=== PATIENT | female | born 1930 | race Caucasian/White ===

== ENCOUNTER 2016-12-14 13:06 | Observation (INO) | payer MEDICARE, OTHER ==
[2016-12-14 13:58] LABS: BASOPHILS % 0.4 (0.0-1.5); EOSINOPHILS % 4.7 % (0.0-6.8); MEAN CORPUSCULAR HEMOGLOBIN 30.8 pg (28.0-34.0); MEAN CORPUSCULAR VOLUME 92.5 fl (80.0-100.0); MONOCYTES % 9.6 % (0.0-11.0); NEUTROPHILS # 4.2 # k/uL (1.4-7.7)
[2016-12-14] MEDS ORDERED: SALINE FLUSH 10 ML DISP.SYRIN IVF ONE (14:06)
[2016-12-14] MEDS: ENOXAPARIN SODIUM 30 MG/0.3 ML DISP.SYRIN SQ SCH (14:38)
[2016-12-14 14:41] VITALS: BMI 30.4
[2016-12-14] MEDS ORDERED: ALPRAZOLAM 0.5 MG TABLET PO PRN (15:04)
[2016-12-14] MEDS ORDERED: NITROGLYCERIN 0.4 MG TAB.SUBL SL PRN (15:04)
[2016-12-14] MEDS ORDERED: 0.9 % SODIUM CHLORIDE 1,000 ML IV SCH (15:30)
[2016-12-14] MEDS: MULTIVITAMIN 1 EACH TABLET PO SCH (16:15)
[2016-12-14] MEDS: 0.9 % SODIUM CHLORIDE 1,000 ML IV SCH (16:39)
--- NOTE | 2016-12-14 18:14 | History and Physical Report ---
History of Present Illnes - History of Present Illness Reason for Visit: weakness History of Present Illness: 86-year-old white female who has not been doing well over the last 3 to 4 days. Patient is had decreased oral intake related to food and hydration. Patient is become more lethargic. Patient does have difficulties with ambulation of her related to her chronic osteoarthritis. Patient daughter who is her caregiver states that she is not been getting up out of bed at all. Patient been patient is worse than baseline. It was felt that the patient is probably dehydrated. Patient recently has been started on diuretic therapy for her chronic pedal edema. Patient was subsequently admitted to the hospital for further care and evaluation. - Past Medical History Cardiac: CAD, HTN Pulmonary: Other. denies: Asthma, COPD CLINICAL MEDICAL TRANSCRIPTIONIST: Dementia. denies: Carpal Tunnel Syndrome, CVA, Seizure, TIA Gastrointestinal: Constipation, GERD. denies: Diverticulosis, GI bleed Psych: Anxiety, Depression. denies: Addictions, Bipolar, Panic, Psychosis, Schizophrenia Musculoskeletal: Chronic low back pain, Osteoarthritis Grav: 3 - Past Surgical History Past Surgical History: , Total Hip Replacement, Total Knee Replacement , Other (foot surgery x 2, heart cahterization Mar 2014 with EF of 55%, NSTEMI, back stimulator implantation, Lumbar laminectomy x 2, ) - Past Family History Mother Family History: CVA, (89yo) Father Family History: (86yo, complication of hip surgery) - Past Social History Smoke: No Occupation: retired Alcohol: None Drugs: None Lives: With Family (Son and Daughter) Domestic Violence: Negative - Health Maintenance Health Maintenance: Influenza Vaccine (2012), Pneumococcal Vaccine ( Pneumococcal 23 - 1999) Influenza Vaccine: Current for this Influenza Season Pneumonia Vaccine: Yes Resuscitation Status: Resusciation Status Resuscitation Status Do Not Resuscitate - Unable to Obtain History Unable to Obtain: No Review of Systems - Review of Systems Constitutional: Weakness, Malaise. negative: Fever, Chills Eyes: negative: pain, vision change ENT: negative: Ear Pain, Ear Discharge, Nose Pain, Nose Discharge, Nose Congestion, Mouth Pain, Throat Pain Respiratory: Cough, Dry. negative: Shortness of Breath, Hemoptysis, Pleuritic Pain, Sputum Cardiovascular: negative: Chest Pain, Palpitations Gastrointestinal: Nausea, Constipation. negative: Vomiting, Abdominal Pain, Diarrhea, Melena, Hematochezia Genitourinary: Incontinence. negative: Dysuria, Frequency, Hematuria Musculoskeletal: Neck Pain, Shoulder Pain, Back Pain, Leg Pain Skin: Rash Neurological: Weakness, Confusion. negative: Numbness, Incoordination - Medications/Allergies Allergies/Adverse Reactions: Allergies Allergy/AdvReac Type Severity Reaction Status Date / Time amoxicillin trihydrate Allergy Verified 07/03/14 20:38 [From Augmentin] potassium clavulanate Allergy Verified 07/03/14 20:38 [From Augmentin] Current Inpatient Medications: Current Inpatient Medications Alprazolam (Xanax) 0.5 mg PO BID PRN PRN Reason: Anxiety Aspirin (Ecotrin) 81 mg PO DAILY [facility] Atorvastatin Calcium (Lipitor) 80 mg PO HS [facility] Calcium/Vitamin D (Caltrate With Vit D-3) each PO DAILY [facility] Clopidogrel Bisulfate (Plavix) 75 mg PO D [facility] Docusate Sodium (Colace) 100 mg PO BID [facility] Enoxaparin Sodium (Lovenox) 30 mg SQ QD [facility] Stop: 12/27/16 14:01 Last Admin: 12/14/16 14:38 Dose: 30 mg Ferrous Sulfate (Feosol) 325 mg PO 1100 [facility] Sodium Chloride (Normal Saline) 1,000 mls @ 125 mls/hr IV Q8H [facility] Last Admin: 12/14/16 16:39 Dose: 125 mls/hr Losartan Potassium (Cozaar) mg PO DAILY [facility] Multivitamins (Tab-A-Tiffanie) 1 each PO QD [facility] Last Admin: 12/14/16 16:15 Dose: 1 each Nitroglycerin (Nitroquick) 0.4 mg SL SEE.INSTRUCTIONS PRN PRN Reason: Chest Pain Oxycodone HCl (Oxycontin) 20 mg PO TID PRN PRN Reason: PAIN Pantoprazole Sodium (Protonix) 40 mg PO 0700 [facility] Polyethylene Glycol (Miralax) 17 gm PO DAILY [facility] Potassium Chloride (Klor-Con M20) 40 meq PO DAILY [facility] Sodium Chloride (Normal Saline Flush) 3 ml IV BID [facility] Exam - Exam Vital Signs: Vital Signs (72 hours) 12/14/16 12/14/16 12/14/16 13:37 13:43 14:00 Temperature 97.7 F 98.2 F Pulse Rate 69 Pulse Rate [ 83 93 H Left] Respiratory 18 16 Rate Blood Pressure 139/56 Blood Pressure 138/90 139/56 [Left Arm] O2 Sat by Pulse 93 93 Oximetry General: Oriented to Person, Cooperative. No: Alert (lethargic) HEENT: Atraumatic, PERRLA, Decreased Hearing Acuity. No: Mouth Mucous membr. moist/[place] (dry) Neck: Normal Range of Motion. No: Stridor, Rigidity, Lymphadenopathy Carotids: WNL Lungs: Clear to auscultation, Normal air movement, Speaks full Sentences. No: Wheezes, Rales, Rhonchi, Stridor Cardiovascular: Regular rate, Normal S1, Normal S2, No murmurs. No: Gallops, Rubs Abdomen: Normal bowel sounds, Soft, No tenderness, No hepatospenomegaly, No masses Integumentary: Normal, [place], Warm, Dry Extremities: No clubbing, No cyanosis, Other (edema 2-3plus) Neurological: Strength Equal Bilat, Normal tone, Sensation intact, Cranial nerves 3-12 NL, Reflexes 2+. No: Normal gait, Normal speech (confused) Psych/Mental Status: Mood NL. No: Mental status NL, Appropriate Affect, Intact Judgment - Laboratory Results Laboratory Results: Laboratory Results 12/14/16 12/14/16 13:50 13:50 WBC 6.70 RBC 3.81 L Hgb 11.7 L Hct 35.2 MCV 92.5 MCH 30.8 MCHC 33.3 RDW 12.7 Plt Count 205 Neut % (Auto) 63.5 Lymph % (Auto) 18.6 [place] % (Auto) 9.6 Eos % (Auto) 4.7 Baso % (Auto) 0.4 Neut # 4.2 Lymph # 1.2 [place] # 0.6 Eos # 0.3 Baso # 0.0 Reactive Lymphs % 3.3 Reactive Lymphs # 0.2 Sodium 134 L Potassium 3.3 L Chloride 91 L Carbon Dioxide 37 H BUN 79 H Creatinine 2.0 H Estimated Creat Clear 25 Est GFR ( Amer) 30 L Est GFR (Non-Af Amer) 25 L Glucose 121 H Calcium 9.8 Total Bilirubin 0.2 AST 31 ALT 17 Alkaline Phosphatase 120 H Total Protein 7.4 Albumin 4.1 Assessment/Plan - Assessment/Plan (1) Dehydration Status: Acute Assessment: Patient will be hydrated with IV normal saline. Will monitor patient's creatinine and BUN. Watch for signs of developing congestive heart failure. (2) Altered mental status Status: Acute Assessment: Probably related to dehydration. (3) Gastroesophageal reflux disease Status: Chronic Assessment: stable (4) Osteoarthritis Status: Chronic (5) Unsteady gait Status: Chronic Assessment: related to OA and dehydration (6) Weakness Status: Acute (7) Generalized osteoarthritis Status: Chronic (8) CKD (chronic kidney disease) Status: Chronic Qualifiers: Chronic kidney disease stage: stage 4 (severe) Qualified Code(s): N18.4 - Chronic kidney disease, stage 4 (severe) (9) Essential hypertension Status: Chronic Assessment: stable VTE Assessment - RISK FACTOR SCORE VTE RISK FACTOR SCORES: AGE OVER 60 YEARS, ANTICIPATED BED CONFINEMENT OR IMMOBILIZATION > 24 HOURS - RISK VTE MODERATE RISK: SCORE OF 2 (RISK PROXIMAL DVT 2-4%) PROPHYAXIS NEEDED
[2016-12-14] MEDS: ATORVASTATIN CALCIUM 80 MG TABLET PO SCH (20:08)
[2016-12-14] MEDS: DOCUSATE SODIUM 100 MG CAPSULE PO SCH (20:08)
[2016-12-14] MEDS: SALINE FLUSH 10 ML DISP.SYRIN IV SCH (20:55)
[2016-12-15] MEDS: 0.9 % SODIUM CHLORIDE 1,000 ML IV SCH ×4 (01:05→23:32)
--- NOTE | 2016-12-15 05:13 | Diagnostic Imaging Report ---
[facility] [address] [facility] [address] [address] Report Submission Date: December 14, 2016 3:58:21 PM CDT Patient Study Name: JASEN LENNON Date: December 14, 2016 3:18:03 PM CDT Modality Type: CR Gender: F Description: CHEST : 30 Institution: [facility] Physician: [facility] Single frontal view of the chest History: Shortness of breath Findings: Comparison: January 25, 2016 Patient is rotated Mild cardiomegaly. Aortic calcification Peribronchial thickening and mild bronchiectasis. No focal consolidation or pleural effusion Hiatal hernia Degenerative changes of the shoulders Impression: Cardiomegaly. Hiatal hernia Peribronchial thickening suggests bronchitis. Bronchiectasis. No focal consolidation or pleural effusion Electronically signed on December 14, 2016 3:58:21 PM CDT by: Agnes VALDEZ
[2016-12-15] MEDS: PANTOPRAZOLE SODIUM 40 MG TABLET PO SCH (06:19)
[2016-12-15] MEDS: SALINE FLUSH 10 ML DISP.SYRIN IV SCH ×2 (08:36→20:25)
[2016-12-15] MEDS: DOCUSATE SODIUM 100 MG CAPSULE PO SCH ×2 (08:36→20:13)
[2016-12-15] MEDS: POTASSIUM CHLORIDE 20 MEQ TABLET.ER PO SCH (08:37)
[2016-12-15] MEDS: CLOPIDOGREL BISULFATE 75 MG TABLET PO SCH (08:37)
[2016-12-15] MEDS: ASPIRIN EC 81 MG TABLET.DR PO SCH (08:40)
[2016-12-15] MEDS ORDERED: LOSARTAN POTASSIUM 50 MG TABLET PO SCH (09:00)
[2016-12-15] MEDS ORDERED: CALCIUM CARB 600MG/VIT D-3 400 1 EACH TABLET PO SCH ×2 (09:00→13:03)
[2016-12-15 09:31] LABS: eGFR (African) > 60; eGFR (Non-African) 38
[2016-12-15 09:57] LABS: APPEARANCE,URINE Clear (CLEAR); COLOR,URINE Yellow (YELLOW); OCCULT BLOOD,URINE Trace-intact (NEGATIVE); PH URINE 5.5 (5.0 - 8.0); UROBILINOGEN URINE 0.2 Eu (0.2-1.0)
[2016-12-15] MEDS: POLYETHYLENE GLYCOL 3350 17 GM POWD.PACK PO SCH (11:34)
[2016-12-15] MEDS: FERROUS SULFATE 325 MG TABLET PO SCH (11:58)
[2016-12-15] MEDS ORDERED: NITROGLYCERIN 0.4 MG TAB.SUBL SL PRN (13:02)
[2016-12-15] MEDS: LOSARTAN POTASSIUM 50 MG TABLET PO SCH (13:14)
[2016-12-15] MEDS: ENOXAPARIN SODIUM 30 MG/0.3 ML DISP.SYRIN SQ SCH (14:44)
--- NOTE | 2016-12-15 15:35 | Diagnostic Imaging Report ---
ANGY ROBINS [facility] [address] [facility] [address] [place], [place]. [address] Report Submission Date: December 15, 2016 3:24:54 PM CDT Patient Study Name: JASEN LENNON Date: December 15, 2016 12:48:11 PM CDT Modality Type: CR Gender: F Description: CHEST : 30 Institution: [facility] Physician: ANGY ROBINS 2 views of the chest History: CXR, DYSPNEA AND WEAKNESS, PT UNABLE TO STAND OR LEAN AGAINST CASSETTE FLAT DUE TO BACK PAIN, IMAGES TAKEN IN WHEELCHAIR Findings: Comparison: December 122016 Cardiomegaly with aortic calcification is noted. Patient is rotated Hiatal hernia. Emphysema. There is mild pulmonary vascular congestion. Minimal bibasilar atelectasis present. No pleural effusion or pneumothorax Degenerative changes of the shoulders are seen Impression: Cardiomegaly with pulmonary vascular congestion. Subsegmental bibasilar atelectasis. Hiatal hernia Electronically signed on December 15, 2016 3:24:54 PM CDT by: Agnes VALDEZ
[2016-12-15] MEDS: MULTIVITAMIN 1 EACH TABLET PO SCH (16:33)
[2016-12-15] MEDS: ATORVASTATIN CALCIUM 80 MG TABLET PO SCH (20:13)
[2016-12-16] MEDS: PANTOPRAZOLE SODIUM 40 MG TABLET PO SCH (06:07)
[2016-12-16] MEDS: 0.9 % SODIUM CHLORIDE 1,000 ML IV SCH (06:56)
[2016-12-16] MEDS: DOCUSATE SODIUM 100 MG CAPSULE PO SCH (08:33)
[2016-12-16] MEDS: ASPIRIN EC 81 MG TABLET.DR PO SCH (08:33)
[2016-12-16] MEDS: POTASSIUM CHLORIDE 20 MEQ TABLET.ER PO SCH (08:34)
[2016-12-16] MEDS: SALINE FLUSH 10 ML DISP.SYRIN IV SCH (08:34)
[2016-12-16] MEDS: CLOPIDOGREL BISULFATE 75 MG TABLET PO SCH (08:34)
[2016-12-16] MEDS: LOSARTAN POTASSIUM 50 MG TABLET PO SCH (08:35)
[2016-12-16] MEDS: POLYETHYLENE GLYCOL 3350 17 GM POWD.PACK PO SCH (08:35)
[2016-12-16 11:06] LABS: eGFR (African) > 60; eGFR (Non-African) > 60
[2016-12-16] MEDS: FERROUS SULFATE 325 MG TABLET PO SCH (11:29)
--- NOTE | 2016-12-16 14:43 | Inpatient Progress Note ---
Subjective - Required Recertification Statement I anticipate X number of days because-include discharge plan: 1 day - Review of Systems Events since last encounter: Patient does seem to be improved some today. Patient mental status is still not at her baseline. Patient is starting to take some oral hydration. Patient complains of her generalized osteoarthritis. Objective - Exam Vitals and I&O: Vital Signs Temp 98.2 F 12/16/16 10:00 Pulse 114 H 12/16/16 10:00 Resp 20 12/16/16 10:00 BP 163/73 12/16/16 10:00 Pulse Ox 92 12/16/16 10:00 Intake & Output 12/15/16 12/16/16 12/16/16 23:59 11:59 23:59 Intake Total 720 360 240 Output Total 1225 300 Balance -505 60 240 Weight 68.039 kg Intake: Oral 720 360 240 Output: Urine 1225 300 Other: Voiding Method Bedside Commode Bedside Commode # Voids 1 # Bowel Movements 1 3 General: Alert, Oriented to Person, Oriented to Place, Oriented to Time, Cooperative Lungs: Clear to auscultation, Normal air movement, Speaks full Sentences. No: Wheezes, Rales, Rhonchi Cardiovascular: Regular rate, Normal S1, Normal S2, No murmurs Abdomen: Normal bowel sounds, Soft, No tenderness Extremities: No clubbing, Other (edema stable) - Results Results: Laboratory Results WBC 6.70 K/ul (4.00-12.00) 12/14/16 13:50 RBC 3.81 M/ul (3.90-5.20) L 12/14/16 13:50 Hgb 11.7 g/dL (12.0-16.0) L 12/14/16 13:50 Hct 35.2 % (34.5-46.5) 12/14/16 13:50 MCV 92.5 fl (80.0-100.0) 12/14/16 13:50 MCH 30.8 pg (28.0-34.0) 12/14/16 13:50 MCHC 33.3 g/dL (30.0-36.0) 12/14/16 13:50 RDW 12.7 % (11.3-14.3) 12/14/16 13:50 Plt Count 205 K/mm3 (130-400) 12/14/16 13:50 Neut % (Auto) 63.5 % (39.0-79.0) 12/14/16 13:50 Lymph % (Auto) 18.6 % (16.0-50.0) 12/14/16 13:50 [place] % (Auto) 9.6 % (0.0-11.0) 12/14/16 13:50 Eos % (Auto) 4.7 % (0.0-6.8) 12/14/16 13:50 Baso % (Auto) 0.4 (0.0-1.5) 12/14/16 13:50 Neut # 4.2 # k/uL (1.4-7.7) 12/14/16 13:50 Lymph # 1.2 # k/uL (0.6-4.0) 12/14/16 13:50 [place] # 0.6 # k/uL (0.0-0.9) 12/14/16 13:50 Eos # 0.3 # k/uL (0.0-0.6) 12/14/16 13:50 Baso # 0.0 # k/uL (0.0-0.5) 12/14/16 13:50 Reactive Lymphs % 3.3 % (0.0-5.0) 12/14/16 13:50 Reactive Lymphs # 0.2 # k/uL (0.0-0.8) 12/14/16 13:50 Sodium 143 mmol/L (136-145) 12/16/16 10:35 Potassium 3.9 mmol/L (3.5-5.0) 12/16/16 10:35 Chloride 104 mmol/L (98-110) 12/16/16 10:35 Carbon Dioxide 36 mmol/L (20-32) H 12/16/16 10:35 BUN 36 mg/dL (10-26) H 12/16/16 10:35 Creatinine 1.1 mg/dL (0.4-1.5) 12/16/16 10:35 Estimated Creat Clear 46 12/16/16 10:35 Est GFR ( Amer) > 60 (60-) 12/16/16 10:35 Est GFR (Non-Af Amer) > 60 (60-) 12/16/16 10:35 Glucose 149 mg/dL (70-99) H 12/16/16 10:35 Calcium 10.1 mg/dL (8.5-10.5) 12/16/16 10:35 Total Bilirubin 0.2 mg/dL (0.2-1.2) 12/14/16 13:50 AST 31 U/L (0-41) 12/14/16 13:50 ALT 17 U/L (0-45) 12/14/16 13:50 Alkaline Phosphatase 120 U/L (46-116) H 12/14/16 13:50 Total Protein 7.4 g/dL (6.0-8.5) 12/14/16 13:50 Albumin 4.1 g/dL (3.0-5.5) 12/14/16 13:50 Urine Color Yellow (YELLOW) 12/15/16 09:55 Urine Appearance Clear (CLEAR) 12/15/16 09:55 Urine pH 5.5 (5.0 - 8.0) 12/15/16 09:55 Ur Specific [place] <=1.005 (1.010-1.030) L 12/15/16 09:55 Urine Protein Negative mg/dL (NEGATIVE) 12/15/16 09:55 Urine Ketones Negative mg/dL (NEGATIVE) 12/15/16 09:55 Urine Occult Blood Trace-intact (NEGATIVE) 12/15/16 09:55 Urine Nitrite Negative (NEGATIVE) 12/15/16 09:55 Urine Bilirubin Negative (NEGATIVE) 12/15/16 09:55 Urine Urobilinogen 0.2 Eu (0.2-1.0) 12/15/16 09:55 Ur Leukocyte Esterase Negative (NEGATIVE) 12/15/16 09:55 Urine Glucose Trace mg/dL (NEGATIVE) 12/15/16 09:55 Assessment/Plan - Assessment/Plan (1) Dehydration Status: Acute Assessment: This does seem to be improving. BUN has improved from 79 to 63. Creatinine has improved from 2.0 ti 1.4. Patient's mentation appeared to be improving. (2) Altered mental status Status: Acute Assessment: improved (3) Gastroesophageal reflux disease Status: Chronic Assessment: stable (4) Osteoarthritis Status: Chronic Assessment: stable (5) Unsteady gait Status: Chronic (6) Weakness Status: Acute Assessment: improved (7) Generalized osteoarthritis Status: Chronic (8) CKD (chronic kidney disease) Status: Chronic Qualifiers: Chronic kidney disease stage: stage 4 (severe) Qualified Code(s): N18.4 - Chronic kidney disease, stage 4 (severe) Assessment: improved (9) Essential hypertension Status: Chronic Assessment: stable (10) Hyperglycemia Status: Acute Assessment: Blood sugar 260. will monitor
--- NOTE | 2016-12-16 14:43 | Discharge Summary ---
Discharge Summary - Discharge Sumary History of Present Illness: 86-year-old white female who has not been doing well over the last 3 to 4 days. Patient is had decreased oral intake related to food and hydration. Patient is become more lethargic. Patient does have difficulties with ambulation of her related to her chronic osteoarthritis. Patient daughter who is her caregiver states that she is not been getting up out of bed at all. Patient been patient is worse than baseline. It was felt that the patient is probably dehydrated. Patient recently has been started on diuretic therapy for her chronic pedal edema. Patient was subsequently admitted to the hospital for further care and evaluation. Condition at Discharge: Guarded Home Medications: Ambulatory Orders Medication Instructions Recorded Aspirin EC [Ecotrin] 81 mg PO DAILY 03/26/14 Losartan Potassium [Cozaar] 0.5 tab PO DAILY 03/26/14 Multivitamin [Tab-A-Tiffanie] 1 each PO QD 03/26/14 Docusate Sodium [Colace] 100 mg PO BID 11/25/15 Furosemide [Lasix] 20 mg PO 714 #60 tablet 12/16/16 Consultations this Visit: None Procedures this Visit: None Allergies/Adverse Reactions: Allergies Allergy/AdvReac Type Severity Reaction Status Date / Time amoxicillin trihydrate Allergy Verified 07/03/14 20:38 [From Augmentin] potassium clavulanate Allergy Verified 07/03/14 20:38 [From Augmentin] Discharge Summary: Patient was admitted with a diagnosis of dehydration after she had not been eating or drinking well several days prior to admission. This was coupled with diuretic therapy for her pedal edema. Patient was started on IV hydration with normal saline. Patient is assumed BUN was 79 and creatinine was 2.0. At the time of discharge this has improved to BUN of 36 and a creatinine of 1.1. Patient ability to take in oral hydration improved during her hospitalization. Osteoarthritis remains stable. Patient did have some hypoglycemic episodes with a blood sugar up to 250. Patient did have some mild fasting hyperglycemia. Due to the patient age in her debilitating condition it was felt it would be best if we did not treat her elevated blood sugars at this time. I was afraid that she would become hypoglycemic if we did so. Patient was subsequently discharged in the garden but stable condition - Final Diagnosis (1) Dehydration Problems: improved (2) Altered mental status Problems: improved (3) Gastroesophageal reflux disease Problems: stable (4) Osteoarthritis Problems: stable (5) Weakness Problems: improved (7) CKD (chronic kidney disease) Problems: Acute on chronic, improved (8) Essential hypertension Problems: stable
[2016-12-16 16:43] VITALS: BP 163/73
== END 2016-12-16 16:30 | disposition home or self-care (01) ==
LOC: SOUTH 13:06
PROVIDERS: ADMIT Family Medicine; ATTEND Family Medicine
DX: E86.0 Dehydration (principal); R41.82 Altered mental status, unspecified; K21.9 Gastro-esophageal reflux disease without esophagitis; M19.90 Unspecified osteoarthritis, unspecified site; R53.1 Weakness; I12.9 Hypertensive chronic kidney disease with stage 1 through stage 4 chronic kidney disease, or unspecified chronic kidney disease; N18.9 Chronic kidney disease, unspecified
CPT/HCPCS: 36415; 71020; 80048; 80053; 81002; 85025; 96361; 96374; 96376; J1650; A9270; G0378; G0379; J7030; S1016

== ENCOUNTER 2017-02-01 15:42 | Outpatient (CLI) | payer MEDICARE, OTHER ==
--- NOTE | 2017-02-02 07:02 | Diagnostic Imaging Report ---
ANGY ROBINS~ [facility] [address] [facility] [address] ~ ~ ~ ~ Report Submission Date: Feb 01, 2017 5:03:30 PM CDT Patient ~ Study Name: JASEN LENNON ~ Date: Feb 01, 2017 3:53:04 PM CDT ~ Modality Type: CR Gender: F ~ Description: CHEST : 30 ~ Institution: [facility] Physician: ANGY ROBINS ~ ~ ~ ~ Examination: PA and lateral chest. History: Evaluate lung ball. Comparison exam: 15 Dec 2016 Findings: PA lateral chest demonstrate prominent cardiac silhouette. Vascular calcifications involving the aortic arch. Stable chronic appearing interstitial changes. No new consolidative process or blunting of the costophrenic margins. Osseous structures demonstrate advanced shoulder articular degenerative changes. Impression: Stable chronic interstitial changes. No acute appearing infiltrate or effusion. Stable cardiomegaly. ~ Electronically signed on Feb 01, 2017 5:03:30 PM CDT by: Alex VALDEZ
--- NOTE | 2017-02-02 07:03 | Diagnostic Imaging Report ---
ANGY ROBINS~ [facility] [address] [facility] [address] [address] ~ ~ ~ ~ Report Submission Date: Feb 01, 2017 5:08:30 PM CDT Patient ~ Study Name: JASEN LENNON ~ Date: Feb 01, 2017 4:06:49 PM CDT ~ Modality Type: CR Gender: F ~ Description: PELVIS : 30 ~ Institution: [facility] Physician: ANGY ROBINS ~ ~ ~ ~ Examination: Plain film pelvis History: Discomfort Comparison exams: None provided Findings: Single view of the pelvis demonstrates left hip fixation hardware. Right hip joint space narrowing. ~No fracture. Pelvic phleboliths. Superior and inferior pubic rami and iliac wings without fracture. Sacroiliac joint and lumbar spine degenerative changes. Stimulator projecting over the right iliac wing. Impression: Degenerative changes. No fracture. ~ Electronically signed on Feb 01, 2017 5:08:30 PM CDT by: Alex VALDEZ
== END 2017-02-01 15:43 ==
LOC: RAD 15:42
PROVIDERS: ATTEND Family Medicine
DX: R06.02 Shortness of breath (principal); S32.601A Unspecified fracture of right ischium, initial encounter for closed fracture
CPT/HCPCS: 71020; 72170

== ENCOUNTER 2017-08-17 11:59 | Outpatient (CLI) | payer MEDICARE, OTHER ==
--- NOTE | 2017-08-17 13:37 | Diagnostic Imaging Report ---
ANGY ROBINS [facility] [address] [facility] [address] 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 History: Evaluate lung ball. Comparison exam: 01 February 2017 Findings: PA lateral chest demonstrate a prominent cardiac and mediastinal silhouette. Bihilar vascular prominence. Perihilar interstitial haziness. Blunting of the posterior sulci hiatal hernia. Osseous structures demonstrates articular degenerative changes. Impression: Slightly increased interstitial haziness and effusion - infiltrate versus increased volume status/CHF. Electronically signed on Aug 17, 2017 12:46:40 PM SENIOR JAVA WEB DEVELOPER by: Alex VALDEZ
== END 2017-08-17 12:00 ==
LOC: RAD 11:59
PROVIDERS: ATTEND Family Medicine
DX: R06.02 Shortness of breath (principal)
CPT/HCPCS: 71020

== ENCOUNTER 2017-10-17 10:49 | Inpatient (IN) | payer MEDICARE, OTHER ==
--- NOTE | 2017-10-17 10:55 | ED Physician Documentation ---
Lower Extremity Injury - HISTORIAN Historian: patient - HPI Chief Complaint: Lower Extremity Injury (L knees) Additional Information: While trying to transfer from bed to commode last noc patient slumped down and injuried the left knee but was not having a lot of pain. This AM pain got worse and she started to have some swelling to the knee and came in for evaluation. Patient did not hear a pop. Has chronic problems with shortness of breath related to COPD and possible CHF. This seems to be getting some worse. No cough noted. Patient has been getting weaker, has a poor appetite. Where: home Severity: moderate Context: fall Associated Symptoms:: swelling (to knee), unable to bear weight. denies: numbness distally - ROS CONST: no problems CVS/RESP: shortness of breath GI/: denies: problems urinating, nausea, vomiting NEURO: denies: headache, head injury - PAST HX Past History: none (Past surgical history -Bilateral TKR, C section, Lumbar laminectomy x2, Hip replacement, back stimulator implantation.), other (anxiety disorder, GERDs, OA-generalized, HTN, R breast cancer) Immunizations: influenza, pneumovax, referred to PCP Allergies/Adverse Reactions: Allergies Allergy/AdvReac Type Severity Reaction Status Date / Time amoxicillin trihydrate Allergy Verified 10/17/17 11:05 [From Augmentin] potassium clavulanate Allergy Verified 10/17/17 11:05 [From Augmentin] Home Medications: Ambulatory Orders Medication Instructions Recorded Aspirin EC [Ecotrin] 81 mg PO DAILY 03/26/14 Losartan Potassium [Cozaar] 0.5 tab PO DAILY 03/26/14 Multivitamin [Tab-A-Tiffanie] 1 each PO QD 03/26/14 Docusate Sodium [Colace] 100 mg PO BID 11/25/15 - SOCIAL HX Smoking History: non-smoker Alcohol Use: none Drug Use: none - FAMILY HX Family History: no significant history - VITAL SIGNS Vital Signs: Vital Signs Temp Pulse Resp BP Pulse Ox 98.1 F 71 20 142/53 100 10/17/17 15:41 10/17/17 15:41 10/17/17 15:41 10/17/17 15:41 10/17/17 15:41 - REVIEWED ASSESSMENTS Nursing Assessment Reviewed: Yes Vitals Reviewed: Yes ED Results Lab/Radiology - Lab Results Lab Results: Lab Results 10/17/17 10/17/17 10/17/17 12:40 12:40 12:40 WBC 7.60 K/ul K/ul (4.00-12.00) RBC 3.01 M/ul L M/ul (3.90-5.20) Hgb 8.0 g/dL L g/dL (12.0-16.0) Hct 26.6 % L % (34.5-46.5) MCV 88.1 fl fl (80.0-100.0) MCH 26.7 pg L pg (28.0-34.0) MCHC 30.3 g/dL g/dL (30.0-36.0) RDW 13.5 % % (11.3-14.3) Plt Count 209 K/mm3 K/mm3 (130-400) Neut % (Auto) 78.2 % % (39.0-79.0) Lymph % (Auto) 11.0 % L % (16.0-50.0) [place] % (Auto) 8.2 % % (0.0-11.0) Eos % (Auto) 0.4 % % (0.0-6.8) Baso % (Auto) 0.2 (0.0-1.5) Neut # (Auto) 6.0 # k/uL # k/uL (1.4-7.7) Lymph # (Auto) 0.8 # k/uL # k/uL (0.6-4.0) [place] # (Auto) 0.6 # k/uL # k/uL (0.0-0.9) Eos # (Auto) 0.0 # k/uL # k/uL (0.0-0.6) Baso # (Auto) 0.0 # k/uL # k/uL (0.0-0.5) Reactive Lymphs % 2.1 % % (0.0-5.0) Reactive Lymphs # 0.2 # k/uL # k/uL (0.0-0.8) Sodium 139 mmol/L mmol/L (136-145) Potassium 2.4 mmol/L L* mmol/L (3.5-5.1) Chloride 82 mmol/L L mmol/L (98-107) Carbon Dioxide > 40 mmol/L H mmol/L (22-30) BUN 15 mg/dL mg/dL (7-17) Creatinine 1.00 mg/dL mg/dL (0.52-1.04) Estimated Creat Clear 45 Est GFR ( Amer) > 60 (60 - ) Est GFR (Non-Af Amer) > 60 (60 - ) Glucose 135 mg/dL H mg/dL (74-106) Calcium 9.2 mg/dL mg/dL (8.4-10.2) Total Bilirubin 0.7 mg/dL mg/dL (0.2-1.3) AST 35 U/L U/L (15-46) ALT 34 U/L U/L (13-69) Alkaline Phosphatase 77 U/L U/L (38-126) NT-Pro-B Natriuret Pep 6235.0 pg/mL H pg/mL (15.0-450.0) Total Protein 5.7 g/dL L g/dL (6.3-8.2) Albumin 3.0 g/dL L g/dL (3.5-5.0) - Orders Orders: ED Orders Category Date Time Status Place IV Lock 1T Care 10/17/17 11:10 Active CHEST 2VIEW [RAD] Routine Exams 10/17/[address] LEG W/O CONTRAST Stat Exams 10/17/17 Completed KNEE 3 VIEWS [RAD] Stat Exams 10/17/17 Completed BNP [NT-proBNP] Routine Lab 10/17/17 12:40 Completed CBC/PLATELET/DIFF Routine Lab 10/17/17 12:40 Completed CMP Routine Lab 10/17/17 12:40 Completed Ipratropium/Albuterol Sulfate [Duoneb] Med 10/17/17 11:01 Discontinued 3 ml NEB .STK-MED ONE Oxygen Daily Oxygen 10/17/17 11:15 Ordered EKG WITH COMPARISON Routine Ther 10/17/17 11:11 Completed Lower Extremities Injury Phy - Physical Exam General Appearance: alert, anxious Hips: bilateral hip: non-tender, normal inspection, normal range of motion, no evidence of injury Knees: right: normal inspection, no evidence of injury, left: bone tenderness, joint effusion, pain, bilateral: non-tender (mild tenderness to the R, moderate to the L), N/A: normal range of motion (decrease, R at baseline, Lpain with movement), deformity (none), ecchymosis (none) Ankle: bilateral: non-tender, normal inspection, normal range of motion, no evidence of injury Gait: limited by pain Neuro/Vascular/Tendon: no vascular compromise, motor nml, sensation nml Head/ENT: nml inspection. No: swelling, ecchymosis Neck/Back: nml inspection, tenderness (mild to posterior neck) Resp/CVS: chest non-tender, breath sounds nml. No: lungs clear (rales in the bases), reg. rate & rhythm (regular irregular) Abdomen: non-tender Discharge Clincal Impression: Hypokalemia Condition: Stable Disposition: ADMITTED INPATIENT Decision to Admit: [id number] Date of Decison to Admit: 10/17/17 Decision Time: 13:56
[2017-10-17] MEDS ORDERED: IPRATROPIUM/ALBUTEROL SULFATE 3 ML AMPUL.NEB NEB ONE (11:01)
[2017-10-17 12:43] LABS: BASOPHILS % 0.2 (0.0-1.5); EOSINOPHILS % 0.4 % (0.0-6.8); MEAN CORPUSCULAR HEMOGLOBIN 26.7 pg (28.0-34.0); MEAN CORPUSCULAR VOLUME 88.1 fl (80.0-100.0); MONOCYTES % 8.2 % (0.0-11.0)
[2017-10-17 12:59] LABS: eGFR (African) > 60; eGFR (Non-African) > 60
--- NOTE | 2017-10-17 12:59 | Diagnostic Imaging Report ---
ANGY ROBINS [facility] [address] [facility].[address] [address] Report Submission Date: Oct 17, 2017 12:39:42 PM CDT Patient Study Name: JASEN LENNON Date: Oct 17, 2017 11:55:40 AM CDT Modality Type: DX Gender: F Description: LOWER EXTREMITY : 30 Institution: [facility] Physician: ANGY ROBINS 3 views of the left knee Clinical history: Fall 4 days ago. Pain. Findings: Examination of the left knee in AP, lateral and sunrise views demonstrates left total knee replacement. There is irregularity of the medial femoral condyle that is not completely visualized because of superimposed prosthesis. Findings suggest minimally displaced fracture. Visualized tibia and fibula are intact. There is no significant joint effusion. Impression: 1. Irregularity of the medial femoral condyle. Rule out fracture. Electronically signed on Oct 17, 2017 12:39:42 PM CDT by: Kenrick VALDEZ
--- NOTE | 2017-10-17 13:00 | Diagnostic Imaging Report ---
ANGY ROBINS [facility] [address] [facility].[address] [address] Report Submission Date: Oct 17, 2017 12:38:05 PM CDT Patient Study Name: JASEN LENNON Date: Oct 17, 2017 11:42:55 AM CDT Modality Type: DX Gender: F Description: CHEST : 30 Institution: [facility] Physician: ANGY ROBINS AP and lateral chest Clinical history: Dyspnea. Findings: Examination of the chest in AP and lateral views demonstrates right pleural effusion and right basilar atelectasis. Cardiac silhouette is enlarged and the aorta is atherosclerotic severe degenerative changes are seen in the shoulders. Impression: Right pleural effusion with right basilar atelectasis. Cardiomegaly and aortic atherosclerosis. Electronically signed on Oct 17, 2017 12:38:05 PM CDT by: Kenrick VALDEZ
--- NOTE | 2017-10-17 14:54 | Diagnostic Imaging Report ---
[facility] [address] [facility] [address] [place] [address]. [id number] Report Submission Date: Oct 17, 2017 2:00:20 PM CDT Patient Study Name: JASEN LENNON Date: Oct 17, 2017 1:29:23 PM CDT Modality Type: CT\SR Gender: F Description: CT LEG W/O CONTRAST : 30 Institution: [facility] Physician ANGY ROBINS CT of the left knee CLINICAL HISTORY: Fall with injury. Pain. TECHNIQUE: CT left knee is performed in contiguous axial slices with sagittal and coronal reconstructions. FINDINGS: There is artifact from the patient's metallic knee prosthesis. Joint effusion is present. There is no obvious displaced fracture fragment. The appearance on plain films is felt to be postoperative in nature. Visualized tibia and fibula are intact. IMPRESSION: Total knee replacement. Joint effusion. No evident fracture. Electronically signed on Oct 17, 2017 2:00:20 PM CDT by: Kenrick VALDEZ
[2017-10-17 15:49] VITALS: BMI 25.9
[2017-10-17] MEDS ORDERED: NITROGLYCERIN 0.4 MG TAB.SUBL SL PRN (16:39)
[2017-10-17] MEDS ORDERED: POTASSIUM CHLORIDE 40 MEQ/NS 1,000 ML IV ONE (17:18)
[2017-10-17] MEDS: 0.9 % SODIUM CHLORIDE 1,000 ML with POTASSIUM CHLORIDE 40 MEQ IV SCH ×2 (17:24)
[2017-10-17] MEDS ORDERED: FUROSEMIDE 20 MG TABLET PO ONE (17:40)
--- NOTE | 2017-10-17 17:43 | History and Physical Report ---
History of Present Illnes - History of Present Illness Reason for Visit: not feeling well History of Present Illness: 87-year-old white female is transferring from a bed to a commode felt last night 's dream her left knee. Patient is not been feeling well for several weeks. Patient is had a decreased appetite although patient's daughter states she has been drinking fairly well. Patient stated that on the morning of admission she start having some increase pain and swelling in the knee is. Patient subsequently came to the ED for evaluation. In the ED patient was found to be markedly hypokalemic. Patient was having some difficulty maintaining her oxygenation greater than 88% on her usual 2 L of oxygen. Patient did have an elevated BNP greater than her baseline. Patient was felt to be possibly having some congestive heart failure associated with hypokalemia. Patient was subsequently admitted to the hospital for further care and evaluation.Chest x- ray did show a mild right-sided pleural effusion. - Past Medical History Cardiac: CAD, HTN Pulmonary: Other. denies: Asthma, COPD MEDICATION TECH: Dementia. denies: Carpal Tunnel Syndrome, CVA, Seizure, TIA Gastrointestinal: Constipation, GERD. denies: Diverticulosis, GI bleed Psych: Anxiety, Depression. denies: Addictions, Bipolar, Panic, Psychosis, Schizophrenia Musculoskeletal: Chronic low back pain, Osteoarthritis Grav: 3 - Past Surgical History Past Surgical History: , Total Hip Replacement, Total Knee Replacement , Other (foot surgery x 2, heart cahterization Mar 2014 with EF of 55%, NSTEMI, back stimulator implantation, Lumbar laminectomy x 2, ) - Past Social History Smoke: No Occupation: retired Alcohol: None Drugs: None Lives: With Family (Son and Daughter) Domestic Violence: Negative - Health Maintenance Health Maintenance: Influenza Vaccine (2012), Pneumococcal Vaccine ( Pneumococcal 23 - 1999) Pneumonia Vaccine: Yes Resuscitation Status: Resusciation Status Resuscitation Status No Intubation/Mech Vent - Unable to Obtain History Unable to Obtain: No Review of Systems - Review of Systems Constitutional: Weakness. negative: Fever, Chills Eyes: negative: pain, vision change ENT: negative: Ear Pain, Ear Discharge, Nose Pain, Nose Discharge, Nose Congestion, Mouth Pain, Mouth Swelling, Throat Pain, Throat Swelling Respiratory: Cough, Dry, Shortness of Breath, SOB with Excertion. negative: Hemoptysis, Pleuritic Pain, Wheezing Cardiovascular: Orthopnea, Edema. negative: Chest Pain, Palpitations, Paroxysmal Noc. Dyspnea, Light Headedness Gastrointestinal: negative: Nausea, Vomiting, Abdominal Pain, Diarrhea, Constipation, Melena, Hematochezia Genitourinary: Incontinence. negative: Dysuria, Frequency Musculoskeletal: Back Pain, Leg Pain Skin: negative: Rash, Lesions Neurological: Weakness. negative: Numbness, Incoordination, Change in Speech, Confusion, Seizures - Medications/Allergies Allergies/Adverse Reactions: Allergies Allergy/AdvReac Type Severity Reaction Status Date / Time amoxicillin trihydrate Allergy Verified 10/17/17 11:05 [From Augmentin] potassium clavulanate Allergy Verified 10/17/17 11:05 [From Augmentin] Current Inpatient Medications: Current Inpatient Medications Alprazolam (Xanax) 0.5 mg PO BID PRN PRN Reason: Anxiety Aspirin (Ecotrin) 81 mg PO DAILY [facility] Docusate Sodium (Colace) 100 mg PO BID [facility] Enoxaparin Sodium (Lovenox) 30 mg SQ QD [facility] Stop: 10/30/17 17:01 Furosemide (Lasix) 20 mg PO BID [facility] Potassium Chloride 40 meq/ (Sodium Chloride) 1,020 mls @ 100 mls/hr IV Q10H [facility] Last Admin: 10/17/17 17:24 Dose: 100 mls/hr Losartan Potassium (Cozaar) mg PO DAILY [facility] Metoprolol Succinate (Toprol Xl) 50 mg PO DAILY [facility] Multivitamins (Tab-A-Tiffanie) 1 each PO QD [facility] Nitroglycerin (Nitroquick) 0.4 mg SL SEE.INSTRUCTIONS PRN PRN Reason: Chest Pain Oxycodone HCl (Oxycontin) 10 mg PO TID PRN PRN Reason: PAIN Paroxetine HCl (Paxil) 40 mg PO DAILY [facility] Polyethylene Glycol (Miralax) 17 gm PO DAILY [facility] Potassium Chloride (Klor-Con M20) 40 meq PO BID [facility] Ropinirole HCl (Requip) 0.5 mg PO TID [facility] Sodium Chloride (Normal Saline Flush) 3 ml IV BID [facility] Spironolactone (Aldactone) 25 mg PO DAILY [facility] Trazodone HCl (Desyrel) 50 mg PO [facility] Exam - Exam Vital Signs: Vital Signs (72 hours) 10/17/17 15:41 Temperature 98.1 F Pulse Rate [ 71 Right Pulse ox] Respiratory 20 Rate Blood Pressure 142/53 [Right Arm] O2 Sat by Pulse 100 Oximetry General: Alert, Oriented to Person, Oriented to Place, Oriented to Time, Cooperative, Mild distress HEENT: Atraumatic, PERRLA, Dentition Normal. No: Mouth Mucous membr. moist/ [place] (dry) Neck: Normal Range of Motion. No: Stridor, Rigidity, Lymphadenopathy Carotids: WNL Thyroid: WNL Lungs: Normal air movement, Speaks full Sentences, Rales (few rales in bases) Cardiovascular: Normal S1, Normal S2, No murmurs, Regularly Irregular Abdomen: Normal bowel sounds, Soft, No tenderness, No hepatospenomegaly, No masses. No: Distended Integumentary: Warm, Dry, Pale Extremities: No clubbing, No cyanosis. No: Normal pulses (deminished in LE) Neurological: Normal speech, Strength Equal Bilat, Normal tone, Sensation intact , Cranial nerves 3-12 NL, Reflexes 2+. No: Normal gait Psych/Mental Status: Mental status NL, Mood NL, Appropriate Affect, Intact Judgment Assessment/Plan - Assessment/Plan (1) Hypokalemia Status: Acute Current Visit: Yes Assessment: Etiology unknown, will start IV and po supplement and recheck. Patient will be placed on heart monitor. (2) CHF (congestive heart failure) Status: Acute Current Visit: Yes Qualifiers: Heart failure type: systolic Assessment: Patient's BND is elevated above baseline, pleural effusion and cadiomegaly on CXR, continues to have some pedal edema. Will start IV lasix, monitor weight and renal functions. Patient is having increase oxygen requirement to maintain SAO2. (3) LBBB (left bundle branch block) Status: Chronic Current Visit: Yes (4) Anemia Status: Acute Current Visit: Yes Qualifiers: Anemia type: unspecified type Qualified Code(s): D64.9 - Anemia, unspecified Assessment: will monitor and get stool specimen for blood (5) Contusion of left knee Status: Acute Current Visit: Yes Assessment: X-ray and CT scan negative for fracture. Will start PT and OT. VTE Assessment - RISK FACTOR SCORE VTE RISK FACTOR SCORES: AGE OVER 60 YEARS, ANTICIPATED BED CONFINEMENT OR IMMOBILIZATION > 24 HOURS - RISK VTE MODERATE RISK: SCORE OF 2 (RISK PROXIMAL DVT 2-4%) PROPHYAXIS NEEDED
[2017-10-17] MEDS: ENOXAPARIN SODIUM 30 MG/0.3 ML DISP.SYRIN SQ SCH (17:50)
[2017-10-17] MEDS: rOPINIRole HCL 1 MG TABLET PO SCH ×2 (17:50→18:49)
[2017-10-17] MEDS: MULTIVITAMIN 1 EACH TABLET PO SCH (17:51)
[2017-10-17] MEDS ORDERED: oxyCODONE HCL 10 MG TAB.ER.12H PO ONE (19:34)
[2017-10-17] MEDS: FUROSEMIDE 40 MG/4 ML VIAL IVP SCH (19:41)
[2017-10-17] MEDS: DOCUSATE SODIUM 100 MG CAPSULE PO SCH (20:19)
[2017-10-17] MEDS: POTASSIUM CHLORIDE 20 MEQ TABLET.ER PO SCH (20:19)
[2017-10-17] MEDS: SALINE FLUSH 10 ML DISP.SYRIN IV SCH (20:19)
[2017-10-17] MEDS: ALPRAZOLAM 0.5 MG TABLET PO PRN (20:24)
[2017-10-17] MEDS: traZODone HCL 50 MG TABLET PO SCH (21:00)
[2017-10-17] MEDS ORDERED: FUROSEMIDE 40 MG TABLET PO SCH (21:00)
[2017-10-18] MEDS ORDERED: POTASSIUM CHLORIDE 40 MEQ/NS 1,000 ML IV ONE (03:35)
[2017-10-18] MEDS: 0.9 % SODIUM CHLORIDE 1,000 ML with POTASSIUM CHLORIDE 40 MEQ IV SCH ×2 (03:38)
[2017-10-18] MEDS: FUROSEMIDE 40 MG/4 ML VIAL IVP SCH ×2 (06:07→14:06)
[2017-10-18 07:04] LABS: APPEARANCE,URINE CLEAR (CLEAR); COLOR,URINE AMBER (YELLOW)
[2017-10-18 07:05] LABS: OCCULT BLOOD,URINE NEGATIVE (NEGATIVE); PH URINE 5.5 (5.0 - 8.0); UROBILINOGEN URINE 0.2 Eu (0.2-1.0)
[2017-10-18 07:11] LABS: BASOPHILS % 0.3 (0.0-1.5); EOSINOPHILS % 0.5 % (0.0-6.8); MEAN CORPUSCULAR HEMOGLOBIN 26.6 pg (28.0-34.0); MEAN CORPUSCULAR VOLUME 89.2 fl (80.0-100.0); MONOCYTES % 8.6 % (0.0-11.0); NEUTROPHILS # 6.5 # k/uL (1.4-7.7)
[2017-10-18 07:23] LABS: eGFR (African) > 60; eGFR (Non-African) > 60
[2017-10-18] MEDS: DOCUSATE SODIUM 100 MG CAPSULE PO SCH ×2 (08:51→19:55)
[2017-10-18] MEDS: POTASSIUM CHLORIDE 20 MEQ TABLET.ER PO SCH (08:51)
[2017-10-18] MEDS: ASPIRIN EC 81 MG TABLET.DR PO SCH (08:51)
[2017-10-18] MEDS: SPIRONOLACTONE 25 MG TABLET PO SCH (08:51)
[2017-10-18] MEDS: PARoxetine HCL 10 MG TABLET PO SCH (08:52)
[2017-10-18] MEDS: rOPINIRole HCL 1 MG TABLET PO SCH ×3 (08:53→17:49)
[2017-10-18] MEDS: METOPROLOL SUCCINATE 50 MG TAB.ER.24H PO SCH (08:55)
[2017-10-18] MEDS: SALINE FLUSH 10 ML DISP.SYRIN IV SCH ×2 (08:56→19:59)
[2017-10-18] MEDS: POLYETHYLENE GLYCOL 3350 17 GM POWD.PACK PO SCH (08:56)
[2017-10-18] MEDS ORDERED: LOSARTAN POTASSIUM 50 MG TABLET PO SCH (09:00)
[2017-10-18] MEDS ORDERED: NITROGLYCERIN 0.4 MG TAB.SUBL SL PRN (09:06)
[2017-10-18] MEDS ORDERED: oxyCODONE HCL 10 MG TAB.ER.12H PO ONE (11:35)
[2017-10-18] MEDS ORDERED: oxyCODONE HCL 5 MG TABLET PO PRN (12:51)
[2017-10-18] MEDS ORDERED: oxyCODONE HCL 5 MG TABLET PO SCH (13:00)
[2017-10-18] MEDS: oxyCODONE HCL 5 MG TABLET PO PRN (13:20)
--- NOTE | 2017-10-18 14:38 | Inpatient Progress Note ---
Subjective - Required Recertification Statement I anticipate X number of days because-include discharge plan: 1 day - Review of Systems Events since last encounter: Patient is doing some better today. Pain in the knee is a little better. Still feels weak. SOB is about the same. Patient denies any chest pain. General: Denies: Chills Pulmonary: Dyspnea. Denies: Cough, Pleuritic Chest Pain Cardiovascular: Denies: Chest Pain, Palpitations, Orthopnea Gastrointestinal: Denies: Nausea, Vomiting, Abdominal Pain, Diarrhea, Constipation, Melena, Hematochezia Genitourinary: Incontinence. Denies: Dysuria Musculoskeletal: Neck Pain, Back Pain, Leg Pain Neurological: Weakness Objective - Exam Vitals and I&O: Vital Signs Temp 98.4 F 10/18/17 10:00 Pulse 89 10/18/17 10:00 Resp 16 10/18/17 10:00 BP 100/72 10/18/17 10:00 Pulse Ox 98 10/18/17 10:00 Intake & Output 10/17/17 10/18/17 10/18/17 23:59 11:59 23:59 Intake Total 50 1656 240 Balance 50 1656 240 Weight 62.142 kg Intake: IV 1536 Right Hand 1536 Oral 50 120 240 Other: Voiding Method Diaper Bedpan # Voids 2 General: Alert, Oriented to Person, Oriented to Place, Oriented to Time, Cooperative Neck: Supple, No JVD Lungs: Speaks full Sentences, Rales (in bases R>L) Cardiovascular: Regular rate, Normal S1, Normal S2, No murmurs Abdomen: Normal bowel sounds, Soft, No tenderness, No hepatospenomegaly, No masses Skin: Normal, [place], Warm, Dry Neurological: Normal speech, Strength Equal Bilat Psych/Mental Status: Mental status NL, Mood NL - Results Results: Laboratory Results WBC 8.20 K/ul (4.00-12.00) 10/18/17 06:00 RBC 2.96 M/ul (3.90-5.20) L 10/18/17 06:00 Hgb 7.9 g/dL (12.0-16.0) L 10/18/17 06:00 Hct 26.3 % (34.5-46.5) L 10/18/17 06:00 MCV 89.2 fl (80.0-100.0) 10/18/17 06:00 MCH 26.6 pg (28.0-34.0) L 10/18/17 06:00 MCHC 29.9 g/dL (30.0-36.0) L 10/18/17 06:00 RDW 13.5 % (11.3-14.3) 10/18/17 06:00 Plt Count 192 K/mm3 (130-400) 10/18/17 06:00 Neut % (Auto) 79.9 % (39.0-79.0) H 10/18/17 06:00 Lymph % (Auto) 8.2 % (16.0-50.0) L 10/18/17 06:00 [place] % (Auto) 8.6 % (0.0-11.0) 10/18/17 06:00 Eos % (Auto) 0.5 % (0.0-6.8) 10/18/17 06:00 Baso % (Auto) 0.3 (0.0-1.5) 10/18/17 06:00 Neut # (Auto) 6.5 # k/uL (1.4-7.7) 10/18/17 06:00 Lymph # (Auto) 0.7 # k/uL (0.6-4.0) 10/18/17 06:00 [place] # (Auto) 0.7 # k/uL (0.0-0.9) 10/18/17 06:00 Eos # (Auto) 0.0 # k/uL (0.0-0.6) 10/18/17 06:00 Baso # (Auto) 0.0 # k/uL (0.0-0.5) 10/18/17 06:00 Reactive Lymphs % 2.5 % (0.0-5.0) 10/18/17 06:00 Reactive Lymphs # 0.2 # k/uL (0.0-0.8) 10/18/17 06:00 Sodium 142 mmol/L (136-145) 10/18/17 06:00 Potassium 3.6 mmol/L (3.5-5.1) 10/18/17 06:00 Chloride 88 mmol/L (98-107) L 10/18/17 06:00 Carbon Dioxide > 40 mmol/L (22-30) H 10/18/17 06:00 BUN 20 mg/dL (7-17) H 10/18/17 06:00 Creatinine 1.10 mg/dL (0.52-1.04) H 10/18/17 06:00 Estimated Creat Clear 41 10/18/17 06:00 Est GFR ( Amer) > 60 (60-) 10/18/17 06:00 Est GFR (Non-Af Amer) > 60 (60-) 10/18/17 06:00 Glucose 127 mg/dL (74-106) H 10/18/17 06:00 Calcium 9.1 mg/dL (8.4-10.2) 10/18/17 06:00 Total Bilirubin 0.7 mg/dL (0.2-1.3) 10/18/17 06:00 AST 34 U/L (15-46) 10/18/17 06:00 ALT 36 U/L (13-69) 10/18/17 06:00 Alkaline Phosphatase 65 U/L (38-126) 10/18/17 06:00 NT-Pro-B Natriuret Pep 6235.0 pg/mL (15.0-450.0) H 10/17/17 12:40 Total Protein 5.3 g/dL (6.3-8.2) L 10/18/17 06:00 Albumin 2.7 g/dL (3.5-5.0) L 10/18/17 06:00 Urine Color [place] (YELLOW) 10/17/17 15: Urine Appearance Clear (CLEAR) 10/17/17 15: Urine pH 5.5 (5.0 - 8.0) 10/17/17 15:27 Ur Specific [place] >=1.030 (1.010-1.030) H 10/17/17 15: Urine Protein 1+ mg/dL (NEGATIVE) H 10/17/17 15: Urine Ketones Negative mg/dL (NEGATIVE) 10/17/17 15: Urine Occult Blood Negative (NEGATIVE) 10/17/17 15: Urine Nitrite Negative (NEGATIVE) 10/17/17 15: Urine Bilirubin 1+ (NEGATIVE) H 10/17/17 15:27 Urine Urobilinogen 0.2 Eu (0.2-1.0) 03/13/18 15:27 Ur Leukocyte Esterase Negative (NEGATIVE) 10/17/17 15:27 Urine Glucose Negative mg/dL (NEGATIVE) 10/17/17 15:27 Assessment/Plan - Assessment/Plan (1) CHF (congestive heart failure) Status: Acute Current Visit: Yes Qualifiers: Heart failure type: systolic Assessment: will recheck chesst x-ray, continue with IV lasix. Will try to start to wean down oxygen. (2) Hypokalemia Status: Acute Current Visit: Yes Assessment: improved to 3.6, will d/c IV fluids and K, decrease oral dose of K and recheck in the AM (3) LBBB (left bundle branch block) Status: Chronic Current Visit: Yes Assessment: stable (4) Anemia Status: Acute Current Visit: Yes Qualifiers: Anemia type: unspecified type Qualified Code(s): D64.9 - Anemia, unspecified Assessment: stable, stool for occult blood ordered (5) Contusion of left knee Status: Acute Current Visit: Yes Assessment: stable (6) Elevated CO2 level Status: Acute Current Visit: Yes Plan: will get arterial blood gas
[2017-10-18] MEDS: ENOXAPARIN SODIUM 30 MG/0.3 ML DISP.SYRIN SQ SCH (17:50)
[2017-10-18] MEDS: MULTIVITAMIN 1 EACH TABLET PO SCH (17:50)
--- NOTE | 2017-10-18 18:16 | Diagnostic Imaging Report ---
[place] [address] [facility] [address] [address] Report Submission Date: Oct 18, 2017 10:10:10 AM CDT Patient Study Name: JASEN LENNON Date: Oct 18, 2017 9:31:17 AM CDT Modality Type: DX Gender: F Description: CHEST : 30 Institution: [facility] Physician: [place]/MED SURG Chest, 2 view History: CONTINUED COUGH Findings: The heart is enlarged. Mild vascular congestion is present. Bilateral pleural effusions are present with bibasilar atelectasis. Severe degenerative are present within the bilateral shoulders. Impression: 1. Cardiomegaly is mild vascular congestion. 2. Bilateral pleural effusions bibasilar atelectasis Electronically signed on Oct 18, 2017 10:10:10 AM CDT by: Omer VALDEZ
[2017-10-18] MEDS: traZODone HCL 50 MG TABLET PO SCH (19:55)
[2017-10-19] MEDS: FUROSEMIDE 40 MG/4 ML VIAL IVP SCH ×2 (05:33→14:09)
[2017-10-19 08:04] LABS: BASOPHILS % 0.3 (0.0-1.5); EOSINOPHILS % 0.7 % (0.0-6.8); MEAN CORPUSCULAR HEMOGLOBIN 26.6 pg (28.0-34.0); MEAN CORPUSCULAR VOLUME 89.1 fl (80.0-100.0); MONOCYTES % 7.5 % (0.0-11.0); NEUTROPHILS # 6.5 # k/uL (1.4-7.7)
[2017-10-19] MEDS: ASPIRIN EC 81 MG TABLET.DR PO SCH (08:05)
[2017-10-19] MEDS: PARoxetine HCL 10 MG TABLET PO SCH (08:05)
[2017-10-19] MEDS: METOPROLOL SUCCINATE 50 MG TAB.ER.24H PO SCH (08:05)
[2017-10-19] MEDS: POLYETHYLENE GLYCOL 3350 17 GM POWD.PACK PO SCH (08:06)
[2017-10-19] MEDS: SPIRONOLACTONE 25 MG TABLET PO SCH (08:06)
[2017-10-19] MEDS: rOPINIRole HCL 1 MG TABLET PO SCH ×3 (08:06→18:55)
[2017-10-19] MEDS: SALINE FLUSH 10 ML DISP.SYRIN IV SCH ×2 (08:11→22:11)
[2017-10-19 08:39] LABS: eGFR (African) > 60; eGFR (Non-African) 41
[2017-10-19] MEDS ORDERED: ACETAMINOPHEN 500 MG TABLET PO ONE (08:47)
[2017-10-19] MEDS ORDERED: diphenhydrAMINE HCL 25 MG TABLET PO ONE (08:47)
[2017-10-19] MEDS ORDERED: POTASSIUM CHLORIDE 20 MEQ TABLET.ER PO SCH (09:00)
[2017-10-19] MEDS ORDERED: LOSARTAN POTASSIUM 50 MG TABLET PO SCH (09:00)
[2017-10-19] MEDS: oxyCODONE HCL 5 MG TABLET PO PRN (11:15)
--- NOTE | 2017-10-19 12:03 | Inpatient Progress Note ---
Subjective - Required Recertification Statement I anticipate X number of days because-include discharge plan: 1 day - Review of Systems Events since last encounter: Patient seems a little more lethargic today. Voices no complaints. Hgb has dropped to 7.3. Due to th fact that she has CHF will transfuse her two units. CO2 has improved to 38. Bun and creatinine are elevated slightly higher. Pain seem to be controlled some better. Objective - Exam Vitals and I&O: Vital Signs Temp 97.5 F L 10/19/17 05:46 Pulse 85 10/19/17 05:46 Resp 18 10/19/17 09:21 BP 134/60 10/19/17 05:46 Pulse Ox 96 10/19/17 05:46 Intake & Output 10/18/17 10/19/17 10/19/17 23:59 11:59 23:59 Intake Total 615 340 Balance 615 340 Intake: IV 15 Right Hand 15 Oral 600 340 Other: Voiding Method Bedpan # Voids 1 1 General: Oriented to Person, Mild distress. No: Oriented to Place, Oriented to Time Lungs: Speaks full Sentences, Rales (in bases) Cardiovascular: Regular rate (LBBB) Abdomen: Normal bowel sounds, Soft, No tenderness Skin: Normal, [place], Warm, Dry Neurological: Normal speech Psych/Mental Status: Appropriate Affect. No: Mental status NL (more confused today), Intact Judgment - Results Results: Laboratory Results WBC 8.20 K/ul (4.00-12.00) 10/19/17 07:24 RBC 2.75 M/ul (3.90-5.20) L 10/19/17 07:24 Hgb 7.3 g/dL (12.0-16.0) L 10/19/17 07:24 Hct 24.5 % (34.5-46.5) L 10/19/17 07:24 MCV 89.1 fl (80.0-100.0) 10/19/17 07:24 MCH 26.6 pg (28.0-34.0) L 10/19/17 07:24 MCHC 29.9 g/dL (30.0-36.0) L 10/19/17 07:24 RDW 13.6 % (11.3-14.3) 10/19/17 07:24 Plt Count 193 K/mm3 (130-400) 10/19/17 07:24 Neut % (Auto) 79.2 % (39.0-79.0) H 10/19/17 07:24 Lymph % (Auto) 8.8 % (16.0-50.0) L 10/19/17 07:24 [place] % (Auto) 7.5 % (0.0-11.0) 10/19/17 07:24 Eos % (Auto) 0.7 % (0.0-6.8) 10/19/17 07:24 Baso % (Auto) 0.3 (0.0-1.5) 10/19/17 07:24 Neut # (Auto) 6.5 # k/uL (1.4-7.7) 10/19/17 07:24 Lymph # (Auto) 0.7 # k/uL (0.6-4.0) 10/19/17 07:24 [place] # (Auto) 0.6 # k/uL (0.0-0.9) 10/19/17 07:24 Eos # (Auto) 0.1 # k/uL (0.0-0.6) 10/19/17 07:24 Baso # (Auto) 0.0 # k/uL (0.0-0.5) 10/19/17 07:24 Reactive Lymphs % 3.5 % (0.0-5.0) 10/19/17 07:24 Reactive Lymphs # 0.3 # k/uL (0.0-0.8) 10/19/17 07:24 Sodium 139 mmol/L (136-145) 10/19/17 07:55 Potassium 4.6 mmol/L (3.5-5.1) 10/19/17 07:55 Chloride 91 mmol/L (98-107) L 10/19/17 07:55 Carbon Dioxide 38 mmol/L (22-30) H 10/19/17 07:55 BUN 30 mg/dL (7-17) H 10/19/17 07:55 Creatinine 1.30 mg/dL (0.52-1.04) H 10/19/17 07:55 Estimated Creat Clear 35 10/19/17 07:55 Est GFR ( Amer) > 60 (60-) 10/19/17 07:55 Est GFR (Non-Af Amer) 41 (60-) L 10/19/17 07:55 Glucose 109 mg/dL (74-106) H 10/19/17 07:55 Calcium 9.3 mg/dL (8.4-10.2) 10/19/17 07:55 Total Bilirubin 0.7 mg/dL (0.2-1.3) 10/19/17 07:55 AST 30 U/L (15-46) 10/19/17 07:55 ALT 38 U/L (13-69) 10/19/17 07:55 Alkaline Phosphatase 72 U/L (38-126) 10/19/17 07:55 NT-Pro-B Natriuret Pep 6235.0 pg/mL (15.0-450.0) H 10/17/17 12:40 Total Protein 5.3 g/dL (6.3-8.2) L 10/19/17 07:55 Albumin 2.7 g/dL (3.5-5.0) L 10/19/17 07:55 Urine Color Paula (YELLOW) 10/17/17 15:27 Urine Appearance Clear (CLEAR) 10/17/17 15:27 Urine pH 5.5 (5.0 - 8.0) 10/17/17 15:27 Ur Specific [place] >=1.030 (1.010-1.030) H 10/17/17 15:27 Urine Protein 1+ mg/dL (NEGATIVE) H 10/17/17 15:27 Urine Ketones Negative mg/dL (NEGATIVE) 10/17/17 15:27 Urine Occult Blood Negative (NEGATIVE) 10/17/17 15:27 Urine Nitrite Negative (NEGATIVE) 10/17/17 15:27 Urine Bilirubin 1+ (NEGATIVE) H 10/17/17 15:27 Urine Urobilinogen 0.2 Eu (0.2-1.0) 10/17/17 15:27 Ur Leukocyte Esterase Negative (NEGATIVE) 10/17/17 15:27 Urine Glucose Negative mg/dL (NEGATIVE) 10/17/17 15:27 Assessment/Plan - Assessment/Plan (1) CHF (congestive heart failure) Status: Acute Current Visit: Yes Qualifiers: Heart failure type: systolic Assessment: stable, hopefully transfusion will help, will watch for fluid overload. (2) Hypokalemia Status: Acute Current Visit: Yes Assessment: improved 4.6 today (3) LBBB (left bundle branch block) Status: Chronic Current Visit: Yes Assessment: stable (4) Anemia Status: Acute Current Visit: Yes Qualifiers: Anemia type: unspecified type Qualified Code(s): D64.9 - Anemia, unspecified (5) Contusion of left knee Status: Acute Current Visit: Yes Assessment: stable, still having some pain (6) Elevated CO2 level Status: Acute Current Visit: Yes Assessment: Believed to be related to supplemental oxygen being high, is improved today.
[2017-10-19] MEDS ORDERED: 0.9 % SODIUM CHLORIDE 250 ML IV ONE (14:26)
[2017-10-19] MEDS: MULTIVITAMIN 1 EACH TABLET PO SCH (18:21)
[2017-10-19] MEDS: ENOXAPARIN SODIUM 30 MG/0.3 ML DISP.SYRIN SQ SCH (18:22)
[2017-10-19] MEDS: ACETAMINOPHEN 500 MG TABLET PO ONE (18:24)
[2017-10-19] MEDS: DOCUSATE SODIUM 100 MG CAPSULE PO SCH (22:10)
[2017-10-19] MEDS: traZODone HCL 50 MG TABLET PO SCH (22:11)
[2017-10-20] MEDS ORDERED: 0.9 % SODIUM CHLORIDE 0 ML IV ONE (01:08)
[2017-10-20] MEDS: ACETAMINOPHEN 500 MG TABLET PO ONE (01:16)
[2017-10-20 04:51] LABS: IRON SERUM 17 ug/dL (37-145); SERUM IRON 17 ug/dL (37-145)
[2017-10-20 06:23] LABS: BASOPHILS % 0.3 (0.0-1.5); MEAN CORPUSCULAR HEMOGLOBIN 27.4 pg (28.0-34.0); MEAN CORPUSCULAR VOLUME 88.6 fl (80.0-100.0); MONOCYTES % 10.8 % (0.0-11.0); NEUTROPHILS # 5.3 # k/uL (1.4-7.7)
[2017-10-20] MEDS: FUROSEMIDE 40 MG/4 ML VIAL IVP SCH (07:15)
[2017-10-20] MEDS: SPIRONOLACTONE 25 MG TABLET PO SCH (09:20)
[2017-10-20] MEDS: DOCUSATE SODIUM 100 MG CAPSULE PO SCH ×2 (09:21→21:20)
[2017-10-20] MEDS: LOSARTAN POTASSIUM 50 MG TABLET PO SCH (09:22)
[2017-10-20] MEDS ORDERED: MAGNESIUM HYDROXIDE 400 MG/5 ML 30ML UDC PO PRN (09:22)
[2017-10-20] MEDS: PARoxetine HCL 10 MG TABLET PO SCH (09:23)
[2017-10-20] MEDS: POLYETHYLENE GLYCOL 3350 17 GM POWD.PACK PO SCH (09:23)
[2017-10-20] MEDS: SALINE FLUSH 10 ML DISP.SYRIN IV SCH ×2 (09:23→21:14)
[2017-10-20] MEDS: rOPINIRole HCL 1 MG TABLET PO SCH ×3 (09:24→17:44)
[2017-10-20] MEDS: ASPIRIN EC 81 MG TABLET.DR PO SCH (09:25)
[2017-10-20] MEDS: METOPROLOL SUCCINATE 50 MG TAB.ER.24H PO SCH (09:25)
--- NOTE | 2017-10-20 09:25 | Inpatient Progress Note ---
Subjective - Required Recertification Statement I anticipate X number of days because-include discharge plan: 1 day - Review of Systems Events since last encounter: Patient seems brighter today. Answering question appropriately. Complains of some lower bck pain. Feels constipated. General: Denies: Chills Cardiovascular: Denies: Chest Pain, Palpitations Gastrointestinal: Constipation. Denies: Nausea, Vomiting, Abdominal Pain, Hematochezia Genitourinary: Denies: Dysuria Objective - Exam Vitals and I&O: Vital Signs Temp 97.8 F 10/20/17 06:00 Pulse 74 10/20/17 06:00 Resp 18 10/20/17 06:00 BP 113/55 10/20/17 06:00 Pulse Ox 100 10/20/17 06:00 Intake & Output 10/19/17 10/19/17 10/20/17 11:59 23:59 11:59 Intake Total 340 960 150 Balance 340 960 150 Weight 65.317 kg Intake: Oral 340 960 150 Other: Voiding Method Bedpan Bedpan Diaper # Voids 1 1 General: Alert, Oriented to Person, Oriented to Place, Oriented to Time, Cooperative Neck: Supple Lungs: Normal air movement, Speaks full Sentences, Rales (R>L base) Cardiovascular: Regular rate, Normal S1, Normal S2, No murmurs Abdomen: Normal bowel sounds, Soft, No tenderness, No hepatospenomegaly, No masses Extremities: No clubbing, No edema Skin: Normal, [place], Warm, Dry Neurological: Normal speech, Strength Equal Bilat Psych/Mental Status: Mental status NL, Mood NL - Results Results: Laboratory Results WBC 7.40 K/ul (4.00-12.00) 10/20/17 05:11 RBC 3.23 M/ul (3.90-5.20) L 10/20/17 05:11 Hgb 8.9 g/dL (12.0-16.0) L 10/20/17 05:11 Hct 28.6 % (34.5-46.5) L 10/20/17 05:11 MCV 88.6 fl (80.0-100.0) 10/20/17 05:11 MCH 27.4 pg (28.0-34.0) L 10/20/17 05:11 MCHC 31.0 g/dL (30.0-36.0) 10/20/17 05:11 RDW 13.9 % (11.3-14.3) 10/20/17 05:11 Plt Count 196 K/mm3 (130-400) 10/20/17 05:11 Neut % (Auto) 72.0 % (39.0-79.0) 10/20/17 05:11 Lymph % (Auto) 12.8 % (16.0-50.0) L 10/20/17 05:11 [place] % (Auto) 10.8 % (0.0-11.0) 10/20/17 05:11 Eos % (Auto) 1.0 % (0.0-6.8) 10/20/17 05:11 Baso % (Auto) 0.3 (0.0-1.5) 10/20/17 05:11 Neut # (Auto) 5.3 # k/uL (1.4-7.7) 10/20/17 05:11 Lymph # (Auto) 1.0 # k/uL (0.6-4.0) 10/20/17 05:11 [place] # (Auto) 0.8 # k/uL (0.0-0.9) 10/20/17 05:11 Eos # (Auto) 0.1 # k/uL (0.0-0.6) 10/20/17 05:11 Baso # (Auto) 0.0 # k/uL (0.0-0.5) 10/20/17 05:11 Reactive Lymphs % 3.0 % (0.0-5.0) 10/20/17 05:11 Reactive Lymphs # 0.2 # k/uL (0.0-0.8) 10/20/17 05:11 Sodium 136 mmol/L (136-145) 10/20/17 05:11 Potassium 5.5 mmol/L (3.5-5.1) H 10/20/17 05:11 Chloride 90 mmol/L (98-107) L 10/20/17 05:11 Carbon Dioxide 38 mmol/L (22-30) H 10/20/17 05:11 BUN 39 mg/dL (7-17) H 10/20/17 05:11 Creatinine 1.60 mg/dL (0.52-1.04) H 10/20/17 05:11 Estimated Creat Clear 30 10/20/17 05:11 Est GFR ( Amer) 39 (60-) L 10/20/17 05:11 Est GFR (Non-Af Amer) 32 (60-) L 10/20/17 05:11 Glucose 91 mg/dL (74-106) 10/20/17 05:11 Calcium 9.5 mg/dL (8.4-10.2) 10/20/17 05:11 Iron 17 ug/dL (37-145) L 10/19/17 Unknown Iron (send out) 17 ug/dL (37-145) L 10/19/17 Unknown TIBC 257 ug/dL (250-425) 10/19/17 Unknown % Saturation 7 % (20-50) L 10/19/17 Unknown Total Bilirubin 0.7 mg/dL (0.2-1.3) 10/20/17 05:11 AST 29 U/L (15-46) 10/20/17 05:11 ALT 34 U/L (13-69) 10/20/17 05:11 Alkaline Phosphatase 71 U/L (38-126) 10/20/17 05:11 Troponin I 0.50 ng/mL (0.03-0.06) H 10/20/17 05:11 NT-Pro-B Natriuret Pep 9051.4 pg/mL (15.0-450.0) H 10/20/17 05:11 Total Protein 5.5 g/dL (6.3-8.2) L 10/20/17 05:11 Albumin 2.8 g/dL (3.5-5.0) L 10/20/17 05:11 Vitamin B12 648 pg/mL (211-946) 10/19/17 Unknown Folate >20.0 ng/mL (>4.50) 10/19/17 Unknown Urine Color [place] (YELLOW) 10/17/17 15:27 Urine Appearance Clear (CLEAR) 10/17/17 15:27 Urine pH 5.5 (5.0 - 8.0) 10/17/17 15:27 Ur Specific [place] >=1.030 (1.010-1.030) H 10/17/17 15:27 Urine Protein 1+ mg/dL (NEGATIVE) H 10/17/17 15:27 Urine Ketones Negative mg/dL (NEGATIVE) 10/17/17 15:27 Urine Occult Blood Negative (NEGATIVE) 10/17/17 15:27 Urine Nitrite Negative (NEGATIVE) 10/17/17 15:27 Urine Bilirubin 1+ (NEGATIVE) H 10/17/17 15:27 Urine Urobilinogen 0.2 Eu (0.2-1.0) 10/17/17 15:27 Ur Leukocyte Esterase Negative (NEGATIVE) 10/17/17 15:27 Urine Glucose Negative mg/dL (NEGATIVE) 10/17/17 15:27 Assessment/Plan - Assessment/Plan (1) CHF (congestive heart failure) Status: Acute Current Visit: Yes Qualifiers: Heart failure type: systolic Assessment: BNP higher today. Will check troponin. BUN and creatinine are higher also, may be getting a little dry (2) Hypokalemia Status: Acute Current Visit: Yes Assessment: Potassium is elevated today, will stop supplemental K (3) LBBB (left bundle branch block) Status: Chronic Current Visit: Yes Assessment: stable (4) Anemia Status: Acute Current Visit: Yes Qualifiers: Anemia type: unspecified type Qualified Code(s): D64.9 - Anemia, unspecified Assessment: post transfusion of 1 unit Hgb 8.9 (5) Contusion of left knee Status: Acute Current Visit: Yes Assessment: Patient voices no complaints (6) Elevated CO2 level Status: Acute Current Visit: Yes Assessment: CO2 38 this AM
[2017-10-20] MEDS: oxyCODONE HCL 5 MG TABLET PO PRN (09:38)
[2017-10-20] MEDS: ENOXAPARIN SODIUM 30 MG/0.3 ML DISP.SYRIN SQ SCH (17:44)
[2017-10-20] MEDS: MULTIVITAMIN 1 EACH TABLET PO SCH (17:45)
[2017-10-20] MEDS: traZODone HCL 50 MG TABLET PO SCH (21:16)
[2017-10-21] MEDS: FUROSEMIDE 40 MG/4 ML VIAL IVP SCH (06:08)
[2017-10-21 08:38] LABS: BASOPHILS % 0.2 (0.0-1.5); EOSINOPHILS % 1.1 % (0.0-6.8); MEAN CORPUSCULAR HEMOGLOBIN 27.4 pg (28.0-34.0); MEAN CORPUSCULAR VOLUME 89.3 fl (80.0-100.0); MONOCYTES % 8.7 % (0.0-11.0); NEUTROPHILS # 5.6 # k/uL (1.4-7.7)
[2017-10-21] MEDS: LOSARTAN POTASSIUM 50 MG TABLET PO SCH (09:29)
[2017-10-21] MEDS: SALINE FLUSH 10 ML DISP.SYRIN IV SCH ×2 (09:30→21:11)
[2017-10-21] MEDS: SPIRONOLACTONE 25 MG TABLET PO SCH (09:30)
[2017-10-21] MEDS: DOCUSATE SODIUM 100 MG CAPSULE PO SCH ×2 (09:30→21:08)
[2017-10-21] MEDS: ASPIRIN EC 81 MG TABLET.DR PO SCH (09:30)
[2017-10-21] MEDS: POLYETHYLENE GLYCOL 3350 17 GM POWD.PACK PO SCH (09:30)
[2017-10-21] MEDS: PARoxetine HCL 10 MG TABLET PO SCH (09:31)
[2017-10-21] MEDS: rOPINIRole HCL 1 MG TABLET PO SCH ×3 (09:31→17:30)
[2017-10-21] MEDS: METOPROLOL SUCCINATE 50 MG TAB.ER.24H PO SCH (09:32)
--- NOTE | 2017-10-21 10:22 | Diagnostic Imaging Report ---
[facility]/MED SURG [facility] [address] [facility] [address] [address] Report Submission Date: Oct 21, 2017 10:20:32 AM CDT Patient Study Name: JASEN LENNON Date: Oct 21, 2017 10:05:12 AM CDT Modality Type: DX Gender: F Description: CHEST : 30 Institution: [facility] Physician: [facility]/MED SURG Examination: Portable chest History: COUGH, PT NOT ABLE TO STAY STILL FOR EXAM (Hx) Comparison exam: 18 October 2017 Findings: Single view of the chest demonstrates prominent cardiac silhouette. Vascular calcifications involving the aortic arch. Continued bibasilar parenchymal haziness with blunting of the costophrenic margins. Advanced articular degenerative changes. Impression: Continued large bilateral infiltrates/effusions. Cardiomegaly. Electronically signed on Oct 21, 2017 10:20:32 AM CDT by: Alex VALDEZ
[2017-10-21] MEDS: oxyCODONE HCL 5 MG TABLET PO PRN ×2 (10:39→21:45)
[2017-10-21] MEDS: ALPRAZOLAM 0.5 MG TABLET PO PRN (16:58)
[2017-10-21] MEDS: MULTIVITAMIN 1 EACH TABLET PO SCH (17:31)
[2017-10-21] MEDS: ENOXAPARIN SODIUM 30 MG/0.3 ML DISP.SYRIN SQ SCH (17:31)
[2017-10-21] MEDS: traZODone HCL 50 MG TABLET PO SCH (21:08)
[2017-10-22] MEDS: ALPRAZOLAM 0.5 MG TABLET PO PRN ×2 (04:41→14:49)
[2017-10-22] MEDS: FUROSEMIDE 40 MG/4 ML VIAL IVP SCH (06:04)
[2017-10-22] MEDS: SALINE FLUSH 10 ML DISP.SYRIN IV SCH ×2 (09:19→21:00)
[2017-10-22] MEDS: DOCUSATE SODIUM 100 MG CAPSULE PO SCH ×2 (09:19→20:44)
[2017-10-22] MEDS: ASPIRIN EC 81 MG TABLET.DR PO SCH (09:19)
[2017-10-22] MEDS: POLYETHYLENE GLYCOL 3350 17 GM POWD.PACK PO SCH (09:19)
[2017-10-22] MEDS: METOPROLOL SUCCINATE 50 MG TAB.ER.24H PO SCH (09:20)
[2017-10-22] MEDS: PARoxetine HCL 10 MG TABLET PO SCH (09:20)
[2017-10-22] MEDS: rOPINIRole HCL 1 MG TABLET PO SCH ×3 (09:20→18:42)
[2017-10-22] MEDS: SPIRONOLACTONE 25 MG TABLET PO SCH (09:21)
[2017-10-22] MEDS: LOSARTAN POTASSIUM 50 MG TABLET PO SCH (09:27)
--- NOTE | 2017-10-22 12:42 | Inpatient Progress Note ---
Subjective - Required Recertification Statement I anticipate X number of days because-include discharge plan: 1 day - Review of Systems Events since last encounter: Patient seems to be improving some at this time. Breathing appears to be stable. Patient voices no complaints at this time. Appetite is fair. Pulmonary: Dyspnea (mild) Cardiovascular: Denies: Chest Pain, Palpitations Gastrointestinal: Denies: Nausea, Vomiting, Abdominal Pain Objective - Exam Vitals and I&O: Vital Signs Temp 97.5 F L 10/22/17 09:30 Pulse 88 10/22/17 06:00 Resp 18 10/22/17 09:30 BP 160/77 10/22/17 09:30 Pulse Ox 99 10/22/17 09:30 Intake & Output 10/21/17 10/22/17 10/22/17 23:59 11:59 23:59 Intake Total 225 170 Balance 225 170 Intake: Oral 225 170 Other: Voiding Method Incontinent Diaper # Voids 2 General: Alert, Oriented to Person, Oriented to Place, Oriented to Time, Cooperative Neck: Supple, No JVD Lungs: Speaks full Sentences, Rhonchi (few scattered bilateral) Cardiovascular: Regular rate, Normal S1, Normal S2, No murmurs Extremities: No clubbing, Other (1 plus edema) Skin: Normal, [place], Warm, Dry - Results Results: Laboratory Results WBC 7.40 K/ul (4.00-12.00) 10/21/17 08:30 RBC 3.67 M/ul (3.90-5.20) L 10/21/17 08:30 Hgb 10.0 g/dL (12.0-16.0) L 10/21/17 08:30 Hct 32.8 % (34.5-46.5) L 10/21/17 08:30 MCV 89.3 fl (80.0-100.0) 10/21/17 08:30 MCH 27.4 pg (28.0-34.0) L 10/21/17 08:30 MCHC 30.6 g/dL (30.0-36.0) 10/21/17 08:30 RDW 13.9 % (11.3-14.3) 10/21/17 08:30 Plt Count 194 K/mm3 (130-400) 10/21/17 08:30 Neut % (Auto) 75.2 % (39.0-79.0) 10/21/17 08:30 Lymph % (Auto) 10.8 % (16.0-50.0) L 10/21/17 08:30 [place] % (Auto) 8.7 % (0.0-11.0) 10/21/17 08:30 Eos % (Auto) 1.1 % (0.0-6.8) 10/21/17 08:30 Baso % (Auto) 0.2 (0.0-1.5) 10/21/17 08:30 Neut # (Auto) 5.6 # k/uL (1.4-7.7) 10/21/17 08:30 Lymph # (Auto) 0.8 # k/uL (0.6-4.0) 10/21/17 08:30 [place] # (Auto) 0.6 # k/uL (0.0-0.9) 10/21/17 08:30 Eos # (Auto) 0.1 # k/uL (0.0-0.6) 10/21/17 08:30 Baso # (Auto) 0.0 # k/uL (0.0-0.5) 10/21/17 08:30 Reactive Lymphs % 4.0 % (0.0-5.0) 10/21/17 08:30 Reactive Lymphs # 0.3 # k/uL (0.0-0.8) 10/21/17 08:30 Sodium 135 mmol/L (136-145) L 10/21/17 08:30 Potassium 5.2 mmol/L (3.5-5.1) H 10/21/17 08:30 Chloride 89 mmol/L (98-107) L 10/21/17 08:30 Carbon Dioxide 36 mmol/L (22-30) H 10/21/17 08:30 BUN 42 mg/dL (7-17) H 10/21/17 08:30 Creatinine 1.50 mg/dL (0.52-1.04) H 10/21/17 08:30 Estimated Creat Clear 27 10/21/17 08:30 Est GFR ( Amer) 42 (60-) L 10/21/17 08:30 Est GFR (Non-Af Amer) 35 (60-) L 10/21/17 08:30 Glucose 100 mg/dL (74-106) 10/21/17 08:30 Calcium 9.7 mg/dL (8.4-10.2) 10/21/17 08:30 Iron 17 ug/dL (37-145) L 10/19/17 Unknown Iron (send out) 17 ug/dL (37-145) L 10/19/17 Unknown TIBC 257 ug/dL (250-425) 10/19/17 Unknown % Saturation 7 % (20-50) L 10/19/17 Unknown Total Bilirubin 0.7 mg/dL (0.2-1.3) 10/20/17 05:11 AST 29 U/L (15-46) 10/20/17 05:11 ALT 34 U/L (13-69) 10/20/17 05:11 Alkaline Phosphatase 71 U/L (38-126) 10/20/17 05:11 Troponin I 0.50 ng/mL (0.03-0.06) H 10/20/17 05:11 NT-Pro-B Natriuret Pep 9051.4 pg/mL (15.0-450.0) H 10/20/17 05:11 Total Protein 5.5 g/dL (6.3-8.2) L 10/20/17 05:11 Albumin 2.8 g/dL (3.5-5.0) L 10/20/17 05:11 Vitamin B12 648 pg/mL (211-946) 10/19/17 Unknown Folate >20.0 ng/mL (>4.50) 10/19/17 Unknown Urine Color [place] (YELLOW) 10/17/17 15:27 Urine Appearance Clear (CLEAR) 10/17/17 15:27 Urine pH 5.5 (5.0 - 8.0) 10/17/17 15:27 Ur Specific [place] >=1.030 (1.010-1.030) H 10/17/17 15:27 Urine Protein 1+ mg/dL (NEGATIVE) H 10/17/17 15:27 Urine Ketones Negative mg/dL (NEGATIVE) 10/17/17 15:27 Urine Occult Blood Negative (NEGATIVE) 10/17/17 15: Urine Nitrite Negative (NEGATIVE) 10/17/17 15:27 Urine Bilirubin 1+ (NEGATIVE) H 10/17/17 15:27 Urine Urobilinogen 0.2 Eu (0.2-1.0) 10/17/17 15:27 Ur Leukocyte Esterase Negative (NEGATIVE) 10/17/17 15:27 Urine Glucose Negative mg/dL (NEGATIVE) 10/17/17 15:27 Assessment/Plan - Assessment/Plan (1) CHF (congestive heart failure) Status: Acute Current Visit: Yes Qualifiers: Heart failure type: systolic Assessment: stable to improving (2) Hypokalemia Status: Acute Current Visit: Yes Assessment: resolved, Patient now has some hyperkalemia, supplemental K discontinued. Will decrease Losartan. (3) Anemia Status: Acute Current Visit: Yes Qualifiers: Anemia type: unspecified type Qualified Code(s): D64.9 - Anemia, unspecified Assessment: anemia 10 today (4) Contusion of left knee Status: Acute Current Visit: Yes Assessment: improved (5) Elevated CO2 level Status: Acute Current Visit: Yes Assessment: improved
[2017-10-22] MEDS ORDERED: LEVOFLOXACIN 500MG/D5W 100ML 100 ML IV ONE (13:02)
[2017-10-22] MEDS: LEVOFLOXACIN 500MG/D5W 100ML 500 MG in PREMIX BAG 1 BAG IV SCH (13:18)
--- NOTE | 2017-10-22 13:27 | Diagnostic Imaging Report ---
[facility]/MED SURG~ [facility] [address] [facility] [address] [address] ~ ~ ~ ~ Report Submission Date: Oct 22, 2017 1:01:36 PM CDT Patient ~ Study Name: JASEN LENNON ~ Date: Oct 22, 2017 12:49:36 PM CDT ~ Modality Type: DX Gender: F ~ Description: CHEST : 30 ~ Institution: [facility] Physician: [facility]/MED SURG ~ ~ ~ Portable chest CLINICAL HISTORY: ~ Increased dyspnea. FINDINGS: ~ Examination of the chest in single portable AP view with comparison to examination from the previous day demonstrates persistent large bilateral effusions and bibasilar infiltrates or atelectasis. ~Cardiovascular and mediastinal silhouettes are stable. ~The aorta is atherosclerotic. ~There is no significant change in the appearance of the chest. IMPRESSION: ~ No significant change. ~ Electronically signed on Oct 22, 2017 1:01:36 PM CDT by: Kenrick VALDEZ
[2017-10-22] MEDS ORDERED: FUROSEMIDE 40 MG/4 ML VIAL IVP ONE (17:30)
[2017-10-22] MEDS: ENOXAPARIN SODIUM 30 MG/0.3 ML DISP.SYRIN SQ SCH (18:41)
[2017-10-22] MEDS: MULTIVITAMIN 1 EACH TABLET PO SCH (18:42)
[2017-10-22] MEDS ORDERED: ACETAMINOPHEN 650 MG SUPP.RECT RC PRN (18:44)
[2017-10-22] MEDS: MORPHINE SULFATE 4 MG/ML PREFILLED SYR IVP PRN ×2 (19:18→22:26)
[2017-10-23] MEDS ORDERED: LEVOFLOXACIN 500MG/D5W 100ML 100 ML IV ONE (05:10)
[2017-10-23] MEDS: MORPHINE SULFATE 4 MG/ML PREFILLED SYR IVP PRN ×2 (07:59→12:46)
[2017-10-23] MEDS: FUROSEMIDE 40 MG/4 ML VIAL IVP SCH (08:08)
[2017-10-23] MEDS: LEVOFLOXACIN 500MG/D5W 100ML 500 MG in PREMIX BAG 1 BAG IV SCH (10:37)
[2017-10-23 11:05] LABS: ABG PH 7.4 (7.35-7.45)
[2017-10-23] MEDS: ASPIRIN EC 81 MG TABLET.DR PO SCH (12:15)
[2017-10-23] MEDS: DOCUSATE SODIUM 100 MG CAPSULE PO SCH ×2 (12:15→22:47)
[2017-10-23] MEDS: LOSARTAN POTASSIUM 50 MG TABLET PO SCH (12:15)
[2017-10-23] MEDS: rOPINIRole HCL 1 MG TABLET PO SCH ×3 (12:16→17:18)
[2017-10-23] MEDS: METOPROLOL SUCCINATE 50 MG TAB.ER.24H PO SCH (12:16)
[2017-10-23] MEDS: POLYETHYLENE GLYCOL 3350 17 GM POWD.PACK PO SCH (12:16)
[2017-10-23] MEDS: PARoxetine HCL 10 MG TABLET PO SCH (12:16)
[2017-10-23] MEDS: SALINE FLUSH 10 ML DISP.SYRIN IV SCH ×2 (14:11→22:47)
[2017-10-23] MEDS ORDERED: SCOPOLAMINE HYDROBROMIDE 1.5MG/72HR PATCH TD SCH (16:00)
[2017-10-23] MEDS: ENOXAPARIN SODIUM 30 MG/0.3 ML DISP.SYRIN SQ SCH (17:09)
[2017-10-23] MEDS: MULTIVITAMIN 1 EACH TABLET PO SCH (17:10)
[2017-10-23] MEDS: LORazepam 0.5 MG TABLET SL PRN (20:23)
[2017-10-24] MEDS: oxyCODONE HCL 5 MG TABLET PO SCH ×3 (00:28→19:45)
[2017-10-24] MEDS: LORazepam 0.5 MG TABLET SL PRN (03:59)
[2017-10-24 08:54] LABS: BASOPHILS % 0.1 (0.0-1.5); EOSINOPHILS % 0.2 % (0.0-6.8); MEAN CORPUSCULAR HEMOGLOBIN 28.2 pg (28.0-34.0); MEAN CORPUSCULAR VOLUME 90.3 fl (80.0-100.0); MONOCYTES % 6.5 % (0.0-11.0); NEUTROPHILS # 4.9 # k/uL (1.4-7.7)
[2017-10-24] MEDS: LOSARTAN POTASSIUM 50 MG TABLET PO SCH (08:57)
[2017-10-24] MEDS: DOCUSATE SODIUM 100 MG CAPSULE PO SCH ×2 (08:57→19:45)
[2017-10-24] MEDS: rOPINIRole HCL 1 MG TABLET PO SCH ×3 (08:57→16:39)
[2017-10-24] MEDS: PARoxetine HCL 10 MG TABLET PO SCH (08:57)
[2017-10-24] MEDS: ASPIRIN EC 81 MG TABLET.DR PO SCH (08:57)
[2017-10-24] MEDS: METOPROLOL SUCCINATE 50 MG TAB.ER.24H PO SCH (08:58)
[2017-10-24 09:04] LABS: eGFR (African) 32; eGFR (Non-African) 27
[2017-10-24] MEDS: POLYETHYLENE GLYCOL 3350 17 GM POWD.PACK PO SCH (09:07)
[2017-10-24] MEDS: FUROSEMIDE 40 MG/4 ML VIAL IVP SCH (10:40)
[2017-10-24] MEDS: LEVOFLOXACIN 500MG/D5W 100ML 500 MG in PREMIX BAG 1 BAG IV SCH (10:40)
[2017-10-24] MEDS: SALINE FLUSH 10 ML DISP.SYRIN IV SCH ×2 (10:41→19:45)
--- NOTE | 2017-10-24 11:20 | Inpatient Progress Note ---
Subjective - Required Recertification Statement I anticipate X number of days because-include discharge plan: 1 day - Review of Systems Events since last encounter: Patient continues to be weak. Patient appetite remains fair. Patient states she is continue to have some shortness of breath with minimal exertion. Patient denies any chest pain or chest pressure. Patient is still not had a bowel movement yet. Objective - Exam Vitals and I&O: Vital Signs Temp 98 F 10/24/17 10:43 Pulse 81 10/24/17 10:43 Resp 20 10/24/17 10:43 BP 99/44 10/24/17 10:43 Pulse Ox 95 10/24/17 10:43 Intake & Output 10/23/17 10/23/17 10/24/17 11:59 23:59 11:59 Intake Total 0 150 0 Output Total 0 0 0 Balance 0 150 0 Intake: Oral 0 150 0 Output: Urine 0 Stool 0 0 0 Other: Voiding Method Diaper Incontinent Incontinent # Voids 0 1 General: Alert, Oriented to Person, Oriented to Place, Oriented to Time, Cooperative Neck: Supple, No JVD Lungs: Normal air movement, Speaks full Sentences Cardiovascular: Regular rate, Normal S1, Normal S2, No murmurs Abdomen: Normal bowel sounds, Soft, No tenderness Skin: Normal, [place], Warm, Dry Psych/Mental Status: Mental status NL, Mood NL - Results Results: Laboratory Results WBC 5.70 K/ul (4.00-12.00) 10/24/17 08:40 RBC 3.20 M/ul (3.90-5.20) L 10/24/17 08:40 Hgb 9.0 g/dL (12.0-16.0) L 10/24/17 08:40 Hct 28.9 % (34.5-46.5) L 10/24/17 08:40 MCV 90.3 fl (80.0-100.0) 10/24/17 08:40 MCH 28.2 pg (28.0-34.0) 10/24/17 08:40 MCHC 31.3 g/dL (30.0-36.0) 10/24/17 08:40 RDW 14.7 % (11.3-14.3) H 10/24/17 08:40 Plt Count 261 K/mm3 (130-400) 10/24/17 08:40 Neut % (Auto) 85.5 % (39.0-79.0) H 10/24/17 08:40 Lymph % (Auto) 4.8 % (16.0-50.0) L 10/24/17 08:40 [place] % (Auto) 6.5 % (0.0-11.0) 10/24/17 08:40 Eos % (Auto) 0.2 % (0.0-6.8) 10/24/17 08:40 Baso % (Auto) 0.1 (0.0-1.5) 10/24/17 08:40 Neut # (Auto) 4.9 # k/uL (1.4-7.7) 10/24/17 08:40 Lymph # (Auto) 0.3 # k/uL (0.6-4.0) L 10/24/17 08:40 [place] # (Auto) 0.4 # k/uL (0.0-0.9) 10/24/17 08:40 Eos # (Auto) 0.0 # k/uL (0.0-0.6) 10/24/17 08:40 Baso # (Auto) 0.0 # k/uL (0.0-0.5) 10/24/17 08:40 Reactive Lymphs % 3.0 % (0.0-5.0) 10/24/17 08:40 Reactive Lymphs # 0.2 # k/uL (0.0-0.8) 10/24/17 08:40 pH 7.40 (7.35-7.45) 10/18/17 17:15 pCO2 mmhg (35-48) 10/18/17 17:15 pO2 216 mmhg (83-108) H 10/18/17 17:15 HCO3 42.4 Meq/L (21-28) H* 10/18/17 17:15 ABG O2 Sat Calc/[place] 100 % (93-100) 10/18/17 17:15 ABG Base Excess 22 (-2 - +2) H 10/18/17 17:15 Sodium 136 mmol/L (136-145) 10/24/17 08:40 Potassium 5.1 mmol/L (3.5-5.1) 10/24/17 08:40 Chloride 86 mmol/L (98-107) L 10/24/17 08:40 Carbon Dioxide > 40 mmol/L (22-30) H 10/24/17 08:40 BUN 61 mg/dL (7-17) H 10/24/17 08:40 Creatinine 1.90 mg/dL (0.52-1.04) H 10/24/17 08:40 Estimated Creat Clear 21 10/24/17 08:40 Est GFR ( Amer) 32 (60-) L 10/24/17 08:40 Est GFR (Non-Af Amer) 27 (60-) L 10/24/17 08:40 Glucose 79 mg/dL (74-106) 10/24/17 08:40 Calcium 9.4 mg/dL (8.4-10.2) 10/24/17 08:40 Iron 17 ug/dL (37-145) L 10/19/17 Unknown Iron (send out) 17 ug/dL (37-145) L 10/19/17 Unknown TIBC 257 ug/dL (250-425) 10/19/17 Unknown % Saturation 7 % (20-50) L 10/19/17 Unknown Total Bilirubin 0.8 mg/dL (0.2-1.3) 10/24/17 08:40 AST 87 U/L (15-46) H 10/24/17 08:40 ALT 72 U/L (13-69) H 10/24/17 08:40 Alkaline Phosphatase 80 U/L (38-126) 10/24/17 08:40 Troponin I 0.50 ng/mL (0.03-0.06) H 10/20/17 05:11 NT-Pro-B Natriuret Pep 9051.4 pg/mL (15.0-450.0) H 10/20/17 05:11 Total Protein 5.7 g/dL (6.3-8.2) L 10/24/17 08:40 Albumin 2.7 g/dL (3.5-5.0) L 10/24/17 08:40 Vitamin B12 648 pg/mL (211-946) 10/19/17 Unknown Folate >20.0 ng/mL (>4.50) 10/19/17 Unknown Urine Color [place] (YELLOW) 10/17/17 15:27 Urine Appearance Clear (CLEAR) 10/17/17 15:27 Urine pH 5.5 (5.0 - 8.0) 10/17/17 15:27 Ur Specific [place] >=1.030 (1.010-1.030) H 10/17/17 15:27 Urine Protein 1+ mg/dL (NEGATIVE) H 10/17/17 15:27 Urine Ketones Negative mg/dL (NEGATIVE) 10/17/17 15:27 Urine Occult Blood Negative (NEGATIVE) 10/17/17 15:27 Urine Nitrite Negative (NEGATIVE) 10/17/17 15:27 Urine Bilirubin 1+ (NEGATIVE) H 10/17/17 15:27 Urine Urobilinogen 0.2 Eu (0.2-1.0) 10/17/17 15:27 Ur Leukocyte Esterase Negative (NEGATIVE) 10/17/17 15:27 Urine Glucose Negative mg/dL (NEGATIVE) 10/17/17 15:27 Assessment/Plan - Assessment/Plan (1) CHF (congestive heart failure) Status: Acute Current Visit: Yes Qualifiers: Heart failure type: systolic Assessment: Patient continues to be on IV Lasix. Chest x-ray did not show much improvement in patient pleural effusion or cardiomegaly. (2) Anemia Status: Acute Current Visit: Yes Qualifiers: Anemia type: unspecified type Qualified Code(s): D64.9 - Anemia, unspecified Assessment: Appears to be stable with hemoglobin at 10.0. (3) Contusion of left knee Status: Acute Current Visit: Yes Assessment: stable with no pain (4) Elevated CO2 level Status: Acute Current Visit: Yes Assessment: improved with last CMP (5) Hyperkalemia Status: Acute Current Visit: Yes Assessment: improving with decreasing Losartan and stopping spironolactone
--- NOTE | 2017-10-24 11:29 | Inpatient Progress Note ---
Subjective - Required Recertification Statement I anticipate X number of days because-include discharge plan: 2 days - Review of Systems Events since last encounter: Patient has taken a turn for the worse. Patient respiratory status appeared to be deteriorating. Patient chest is much more congested today than what it has been previously. Patient appeared to develop some increase respiratory distress during the night. Patient had to be placed on a nonrebreather oxygen mask in order to maintain SaO2. I suspect that the patient may have aspirated some. Patient has started to run a low-grade fever. Patient continues to be weak and more lethargic. Pulmonary: Dyspnea, Cough Cardiovascular: Denies: Palpitations Gastrointestinal: Denies: Nausea, Vomiting, Abdominal Pain Objective - Exam Vitals and I&O: Vital Signs Temp 98 F 10/24/17 10:43 Pulse 81 10/24/17 10:43 Resp 20 10/24/17 10:43 BP 99/44 10/24/17 10:43 Pulse Ox 95 10/24/17 10:43 Intake & Output 10/23/17 10/23/17 10/24/17 11:59 23:59 11:59 Intake Total 0 150 0 Output Total 0 0 0 Balance 0 150 0 Intake: Oral 0 150 0 Output: Urine 0 Stool 0 0 0 Other: Voiding Method Diaper Incontinent Incontinent # Voids 0 1 General: Oriented to Person, Cooperative, Moderate distress. No: Alert ( lethargic), Oriented to Place, Oriented to Time Neck: Supple, No JVD Lungs: Respiratory Distress, Rales (course bialateral), Rhonchi. No: Speaks full Sentences Cardiovascular: Regular rate, Normal S1, Normal S2, No murmurs Abdomen: Soft, No tenderness, Decreased Bowel Sounds. No: Distended Extremities: Other (more edema in all four extremities today) Skin: Normal, [place], Warm, Other (edematous) Neurological: Strength Equal Bilat Psych/Mental Status: No: Mental status NL, Appropriate Affect, Intact Judgment - Results Results: Laboratory Results WBC 5.70 K/ul (4.00-12.00) 10/24/17 08:40 RBC 3.20 M/ul (3.90-5.20) L 10/24/17 08:40 Hgb 9.0 g/dL (12.0-16.0) L 10/24/17 08:40 Hct 28.9 % (34.5-46.5) L 10/24/17 08:40 MCV 90.3 fl (80.0-100.0) 10/24/17 08:40 MCH 28.2 pg (28.0-34.0) 10/24/17 08:40 MCHC 31.3 g/dL (30.0-36.0) 10/24/17 08:40 RDW 14.7 % (11.3-14.3) H 10/24/17 08:40 Plt Count 261 K/mm3 (130-400) 10/24/17 08:40 Neut % (Auto) 85.5 % (39.0-79.0) H 10/24/17 08:40 Lymph % (Auto) 4.8 % (16.0-50.0) L 10/24/17 08:40 [place] % (Auto) 6.5 % (0.0-11.0) 10/24/17 08:40 Eos % (Auto) 0.2 % (0.0-6.8) 10/24/17 08:40 Baso % (Auto) 0.1 (0.0-1.5) 10/24/17 08:40 Neut # (Auto) 4.9 # k/uL (1.4-7.7) 10/24/17 08:40 Lymph # (Auto) 0.3 # k/uL (0.6-4.0) L 10/24/17 08:40 [place] # (Auto) 0.4 # k/uL (0.0-0.9) 10/24/17 08:40 Eos # (Auto) 0.0 # k/uL (0.0-0.6) 10/24/17 08:40 Baso # (Auto) 0.0 # k/uL (0.0-0.5) 10/24/17 08:40 Reactive Lymphs % 3.0 % (0.0-5.0) 10/24/17 08:40 Reactive Lymphs # 0.2 # k/uL (0.0-0.8) 10/24/17 08:40 pH 7.40 (7.35-7.45) 10/18/17 17:15 pCO2 mmhg (35-48) 10/18/17 17:15 pO2 216 mmhg (83-108) H 10/18/17 17:15 HCO3 42.4 Meq/L (21-28) H* 10/18/17 17:15 ABG O2 Sat Calc/Stormy 100 % (93-100) 10/18/17 17:15 ABG Base Excess 22 (-2 - +2) H 10/18/17 17:15 Sodium 136 mmol/L (136-145) 10/24/17 08:40 Potassium 5.1 mmol/L (3.5-5.1) 10/24/17 08:40 Chloride 86 mmol/L (98-107) L 10/24/17 08:40 Carbon Dioxide > 40 mmol/L (22-30) H 10/24/17 08:40 BUN 61 mg/dL (7-17) H 10/24/17 08:40 Creatinine 1.90 mg/dL (0.52-1.04) H 10/24/17 08:40 Estimated Creat Clear 21 10/24/17 08:40 Est GFR ( Amer) 32 (60-) L 10/24/17 08:40 Est GFR (Non-Af Amer) 27 (60-) L 10/24/17 08:40 Glucose 79 mg/dL (74-106) 10/24/17 08:40 Calcium 9.4 mg/dL (8.4-10.2) 10/24/17 08:40 Iron 17 ug/dL (37-145) L 10/19/17 Unknown Iron (send out) 17 ug/dL (37-145) L 10/19/17 Unknown TIBC 257 ug/dL (250-425) 10/19/17 Unknown % Saturation 7 % (20-50) L 10/19/17 Unknown Total Bilirubin 0.8 mg/dL (0.2-1.3) 10/24/17 08:40 AST 87 U/L (15-46) H 10/24/17 08:40 ALT 72 U/L (13-69) H 10/24/17 08:40 Alkaline Phosphatase 80 U/L (38-126) 10/24/17 08:40 Troponin I 0.50 ng/mL (0.03-0.06) H 10/20/17 05:11 NT-Pro-B Natriuret Pep 9051.4 pg/mL (15.0-450.0) H 10/20/17 05:11 Total Protein 5.7 g/dL (6.3-8.2) L 10/24/17 08:40 Albumin 2.7 g/dL (3.5-5.0) L 10/24/17 08:40 Vitamin B12 648 pg/mL (211-946) 10/19/17 Unknown Folate >20.0 ng/mL (>4.50) 10/19/17 Unknown Urine Color Paula (YELLOW) 10/17/17 15:27 Urine Appearance Clear (CLEAR) 10/17/17 15:27 Urine pH 5.5 (5.0 - 8.0) 10/17/17 15:27 Ur Specific [place] >=1.030 (1.010-1.030) H 10/17/17 15:27 Urine Protein 1+ mg/dL (NEGATIVE) H 10/17/17 15:27 Urine Ketones Negative mg/dL (NEGATIVE) 10/17/17 15:27 Urine Occult Blood Negative (NEGATIVE) 10/17/17 15:27 Urine Nitrite Negative (NEGATIVE) 10/17/17 15:27 Urine Bilirubin 1+ (NEGATIVE) H 10/17/17 15:27 Urine Urobilinogen 0.2 Eu (0.2-1.0) 10/17/17 15:27 Ur Leukocyte Esterase Negative (NEGATIVE) 10/17/17 15:27 Urine Glucose Negative mg/dL (NEGATIVE) 10/17/17 15:27 Assessment/Plan - Assessment/Plan (1) CHF (congestive heart failure) Status: Acute Current Visit: Yes Qualifiers: Heart failure type: systolic Assessment: Patient's respiratory status is worse. Patient appears to be having more swelling. Swelling does not seem to be improving much despite increasing lasix. (2) Anemia Status: Acute Current Visit: Yes Qualifiers: Anemia type: unspecified type Qualified Code(s): D64.9 - Anemia, unspecified Assessment: stable (3) Elevated CO2 level Status: Acute Current Visit: Yes Assessment: stable (4) Hyperkalemia Status: Acute Current Visit: Yes Assessment: improving (5) Respiratory distress Status: Acute Current Visit: Yes Assessment: Not sure if related to worsening CHF or aspiration. With acute symptoms developing with fever suspect aspiration. I talked to the family about options. They want to keep patient comfortable at this time. Aware that she might not live through this illness. They do not want aggressive treatment at this time. Will continue with lasix, but I suspect patient is acutally starting to get dry with the little oral intake that she has had.
[2017-10-24] MEDS: ENOXAPARIN SODIUM 30 MG/0.3 ML DISP.SYRIN SQ SCH (16:38)
[2017-10-24] MEDS: MULTIVITAMIN 1 EACH TABLET PO SCH (16:39)
[2017-10-24] MEDS: ALPRAZOLAM 0.5 MG TABLET PO PRN (22:26)
[2017-10-25] MEDS: FUROSEMIDE 40 MG/4 ML VIAL IVP SCH (02:52)
[2017-10-25] MEDS: LORazepam 0.5 MG TABLET SL PRN ×2 (04:18→10:12)
[2017-10-25] MEDS ORDERED: MORPHINE SULFATE 10MG/0.5ML ORAL SOLUTION PO ONE ×2 (13:16→14:09)
[2017-10-25 13:57] VITALS: BP 115/53
--- NOTE | 2017-10-26 08:06 | Discharge Summary ---
Discharge Summary - Discharge Sumary History of Present Illness: 87-year-old white female is transferring from a bed to a commode felt last night 's dream her left knee. Patient is not been feeling well for several weeks. Patient is had a decreased appetite although patient's daughter states she has been drinking fairly well. Patient stated that on the morning of admission she start having some increase pain and swelling in the knee is. Patient subsequently came to the ED for evaluation. In the ED patient was found to be markedly hypokalemic. Patient was having some difficulty maintaining her oxygenation greater than 88% on her usual 2 L of oxygen. Patient did have an elevated BNP greater than her baseline. Patient was felt to be possibly having some congestive heart failure associated with hypokalemia. Patient was subsequently admitted to the hospital for further care and evaluation.Chest x- ray did show a mild right-sided pleural effusion. Condition at Discharge: Guarded Home Medications: Ambulatory Orders Medication Instructions Recorded Docusate Sodium [Colace] 100 mg PO BID 11/25/15 Acetaminophen [Tylenol] 650 mg RC Q6 PRN supp.rect 10/24/17 Magnesium Hydroxide [Milk of 2,400 mg PO DAILY PRN unit dose 10/24/17 Magnesia] cup Morphine Sulfate 0.2 - 0.5 ml SL Q2 PRN #30 ml 10/24/17 Scopolamine [Transderm-Scop] 1 each TD Q72 #5 patch.td72 10/24/17 oxyCODONE HCL [Percolone] 5 mg PO BID tablet 10/24/17 Consultations this Visit: None Procedures this Visit: None Allergies/Adverse Reactions: Allergies Allergy/AdvReac Type Severity Reaction Status Date / Time amoxicillin trihydrate Allergy Verified 10/17/17 11:05 [From Augmentin] potassium clavulanate Allergy Verified 10/17/17 11:05 [From Augmentin] Discharge Summary: Patient potassium on admission was 2.4. Patient was started on IV supplemental potassium and oral supplemental potassium. Patient potassium did improve to 4.6 on 10/19/17. Patient did become mildly hypokalemic and potassium supplements were decreased. Patient was anemic on admission and hemoglobin did drop down to 7.3. Patient was subsequently transfused two units of packed RBCs. Hemoglobin did improve into the 9-10 range. It did appear that the patient may be also and some congestive heart failure. Patient initial BNP was 6235. By October 20 it had increased to 9051. Patient was started on IV Lasix on admission. Patient did seem to have good diuresis. Patient oxygen level improved. On 22 October patient started having some increasing respiratory problems. It was felt that the patient may have aspirated. Patient CO2 did increase and patient became more lethargic. Chest x-ray showed continued bilateral pleural effusion's. Patient did have an elevated troponin. It was not sure if this was related to a possible acute myocardial infarction versus congestive heart failure and renal failure.After talking to the patient family with decided to place the patient on hospice. Patient was subsequently discharged home to hospice care. - Final Diagnosis (1) CHF (congestive heart failure) Problems: (2) Anemia Problems: stable (3) Elevated CO2 level Problems: related to respiratory failure.
--- NOTE | 2017-10-26 08:08 | Inpatient Progress Note ---
Subjective - Required Recertification Statement I anticipate X number of days because-include discharge plan: 1 - Review of Systems Events since last encounter: Patient continues to be lethargic with some respiratory distress. Patient continues to have a lot of court rhonchi and rales in the lungs bilaterally. Patient appetite has been poor. Oral intake has been poor. Patient continues to have swelling to her upper and lower extremities. General: Denies: Chills Cardiovascular: Denies: Chest Pain Gastrointestinal: Constipation. Denies: Nausea, Vomiting, Abdominal Pain, Diarrhea Objective - Exam Vitals and I&O: Vital Signs Temp 97.8 F 10/25/17 13:56 Pulse 80 10/25/17 13:56 Resp 20 10/25/17 13:56 BP 115/53 10/25/17 13:56 Pulse Ox 95 10/25/17 13:56 Intake & Output 10/25/17 10/25/17 10/26/17 11:59 23:59 11:59 Intake Total 70 20 Output Total 0 Balance 70 20 Weight 56.245 kg Intake: Oral 70 20 Output: Stool 0 Other: Voiding Method Incontinent # Voids 0 General: Cooperative, Other (lethargic, not answering questions well). No: Alert, Oriented to Person, Oriented to Place, Oriented to Time Neck: Supple, No JVD Lungs: Normal air movement, Rales, Rhonchi Cardiovascular: Regular rate, Normal S1, Normal S2, No murmurs Abdomen: Soft, No tenderness, Decreased Bowel Sounds Extremities: Other (2-3 plus edema bilaterally) Skin: Normal, [place], Warm, Dry Psych/Mental Status: No: Mental status NL, Intact Judgment - Results Results: Laboratory Results WBC 5.70 K/ul (4.00-12.00) 10/24/17 08:40 RBC 3.20 M/ul (3.90-5.20) L 10/24/17 08:40 Hgb 9.0 g/dL (12.0-16.0) L 10/24/17 08:40 Hct 28.9 % (34.5-46.5) L 10/24/17 08:40 MCV 90.3 fl (80.0-100.0) 10/24/17 08:40 MCH 28.2 pg (28.0-34.0) 10/24/17 08:40 MCHC 31.3 g/dL (30.0-36.0) 10/24/17 08:40 RDW 14.7 % (11.3-14.3) H 10/24/17 08:40 Plt Count 261 K/mm3 (130-400) 10/24/17 08:40 Neut % (Auto) 85.5 % (39.0-79.0) H 10/24/17 08:40 Lymph % (Auto) 4.8 % (16.0-50.0) L 10/24/17 08:40 [place] % (Auto) 6.5 % (0.0-11.0) 10/24/17 08:40 Eos % (Auto) 0.2 % (0.0-6.8) 10/24/17 08:40 Baso % (Auto) 0.1 (0.0-1.5) 10/24/17 08:40 Neut # (Auto) 4.9 # k/uL (1.4-7.7) 10/24/17 08:40 Lymph # (Auto) 0.3 # k/uL (0.6-4.0) L 10/24/17 08:40 [place] # (Auto) 0.4 # k/uL (0.0-0.9) 10/24/17 08:40 Eos # (Auto) 0.0 # k/uL (0.0-0.6) 10/24/17 08:40 Baso # (Auto) 0.0 # k/uL (0.0-0.5) 10/24/17 08:40 Reactive Lymphs % 3.0 % (0.0-5.0) 10/24/17 08:40 Reactive Lymphs # 0.2 # k/uL (0.0-0.8) 10/24/17 08:40 pH 7.40 (7.35-7.45) 10/18/17 17:15 pCO2 mmhg (35-48) 10/18/17 17:15 pO2 216 mmhg (83-108) H 10/18/17 17:15 HCO3 42.4 Meq/L (21-28) H* 10/18/17 17:15 ABG O2 Sat Calc/Stormy 100 % (93-100) 10/18/17 17:15 ABG Base Excess 22 (-2 - +2) H 10/18/17 17:15 Sodium 136 mmol/L (136-145) 10/24/17 08:40 Potassium 5.1 mmol/L (3.5-5.1) 10/24/17 08:40 Chloride 86 mmol/L (98-107) L 10/24/17 08:40 Carbon Dioxide > 40 mmol/L (22-30) H 10/24/17 08:40 BUN 61 mg/dL (7-17) H 10/24/17 08:40 Creatinine 1.90 mg/dL (0.52-1.04) H 10/24/17 08:40 Estimated Creat Clear 21 10/24/17 08:40 Est GFR ( Amer) 32 (60-) L 10/24/17 08:40 Est GFR (Non-Af Amer) 27 (60-) L 10/24/17 08:40 Glucose 79 mg/dL (74-106) 10/24/17 08:40 Calcium 9.4 mg/dL (8.4-10.2) 10/24/17 08:40 Iron 17 ug/dL (37-145) L 10/19/17 Unknown Iron (send out) 17 ug/dL (37-145) L 10/19/17 Unknown TIBC 257 ug/dL (250-425) 10/19/17 Unknown % Saturation 7 % (20-50) L 10/19/17 Unknown Total Bilirubin 0.8 mg/dL (0.2-1.3) 10/24/17 08:40 AST 87 U/L (15-46) H 10/24/17 08:40 ALT 72 U/L (13-69) H 10/24/17 08:40 Alkaline Phosphatase 80 U/L (38-126) 10/24/17 08:40 Troponin I 0.50 ng/mL (0.03-0.06) H 10/20/17 05:11 NT-Pro-B Natriuret Pep 9051.4 pg/mL (15.0-450.0) H 10/20/17 05:11 Total Protein 5.7 g/dL (6.3-8.2) L 10/24/17 08:40 Albumin 2.7 g/dL (3.5-5.0) L 10/24/17 08:40 Vitamin B12 648 pg/mL (211-946) 10/19/17 Unknown Folate >20.0 ng/mL (>4.50) 10/19/17 Unknown Urine Color Paula (YELLOW) 10/17/17 15:27 Urine Appearance Clear (CLEAR) 10/17/17 15:27 Urine pH 5.5 (5.0 - 8.0) 10/17/17 15:27 Ur Specific [place] >=1.030 (1.010-1.030) H 10/17/17 15:27 Urine Protein 1+ mg/dL (NEGATIVE) H 10/17/17 15:27 Urine Ketones Negative mg/dL (NEGATIVE) 10/17/17 15:27 Urine Occult Blood Negative (NEGATIVE) 10/17/17 15: Urine Nitrite Negative (NEGATIVE) 10/17/17 15:27 Urine Bilirubin 1+ (NEGATIVE) H 10/17/17 15:27 Urine Urobilinogen 0.2 Eu (0.2-1.0) 10/17/17 15:27 Ur Leukocyte Esterase Negative (NEGATIVE) 10/17/17 15:27 Urine Glucose Negative mg/dL (NEGATIVE) 10/17/17 15:27 Assessment/Plan - Assessment/Plan (1) CHF (congestive heart failure) Status: Acute Qualifiers: Heart failure type: systolic (2) Anemia Status: Acute Qualifiers: Anemia type: unspecified type Qualified Code(s): D64.9 - Anemia, unspecified (3) Elevated CO2 level Status: Acute (4) Hyperkalemia Status: Acute (5) Respiratory distress Status: Acute Assessment: It is believed that the patient is aspirating at this time. I spent some time talking to the family about the patient's condition and they have decided patient the patient on hospice. Plan is for the patient to be discharged once hospice care has been established and her home is prepared for her return.
== END 2017-10-25 14:15 | disposition hospice, home (50) | DRG 642 ==
LOC: ED 10:49 → SOUTH 15:18
PROVIDERS: ADMIT Family Medicine; ATTEND Family Medicine
DX: E78.6 Lipoprotein deficiency (principal); I50.9 Heart failure, unspecified; D64.9 Anemia, unspecified
CPT/HCPCS: 36415; 36600; 71045; 71046; 73562; 73700; 80048; 80053; 81002; 82608; 82746; 82803; 83540; 83550; 83880; 84484; 85025; 86885; 86900; 86901; 86920; 99222; 99232; 99238; 99284; J1650; J1940; J1956; J2270; J3480; J7050; P9040; A9270; A9270-GY; J7030; Q0163; S1016